=== PATIENT | male | born 1935 | race Caucasian/White ===

== ENCOUNTER 2024-07-16 22:24 | Inpatient (IN) | payer MEDICARE, OTHER, SELFPAY ==
[2024-07-16] VITALS (8 sets, daily range): BP systolic 90–116; BP diastolic 43–51; BMI 37.3
[2024-07-16 17:41] LABS: ALT (SGPT) 47 U/L (0-50); AST (SGOT) 51 U/L (17-59); Albumin 3.1 g/dl (3.5-5.0); Alkaline Phosphatase 192 U/L (38-126); Blood Urea Nitrogen 80 mg/dl (9-20); Calcium 8.3 mg/dl (8.4-10.2); Carbon Dioxide 23 mmol/L (22-30); Chloride 90 mmol/L (98-107); Glucose 256 mg/dl (70-99); Potassium 3.9 mmol/L (3.5-5.1); Sodium 126 mmol/L (135-145); Total Bilirubin 1.3 mg/dl (0.2-1.3); Total Protein 5.8 g/dl (6.3-8.2); eGFR 20.17
[2024-07-16 17:42] LABS: Lipase 54 U/L (23-300)
[2024-07-16 17:46] LABS: Troponin I 0.023 ng/ml
[2024-07-16 18:04] LABS: Hematocrit 34.6 % (39.0-52.0); Hemoglobin 12.3 g/dL (13.0-18.0); Mean Corp Hgb Conc. 35.5 g/dL (33.0-37.0); Mean Corpuscular Hgb 30.8 pg (27.0-31.0); Mean Corpuscular Volume 86.5 fL (80.0-94.0); Mean Platelet Volume 9.9 fL (7.4-10.4); Platelet Count 216 10^3/uL (130-400); Red Cell Dist. Width 12.2 % (11.5-14.5); White Blood Cell Count 19.9 10^3/uL (4.8-10.8)
--- NOTE | 2024-07-16 18:18 | ED.GENMED ---
History of Present Illness
<Chacha Stinson NP - Last Filed: 07/16/24 23:44>
General
Chief Complaint: Fever
Source: patient, spouse and family (Daughter)
Exam Limitations: none
Time Seen by Provider: 07/16/24 17:48
Nursing documentation reviewed up to this point in time: agreed with
History of Present Illness
History of Present Illness:
Patient to ED from PCP office for report of fever, weakness, abdominal pain, anorexia. Symptoms started approx 4-5 days ago. He reports a history of GERD and states his medications stopped working in May. He was switched to pantoprozole but
states he developed diarrhea after a few weeks. He stopped med on July 02 but states he hasnt felt right since. No further diarrhea. Family states he has not been eating or drinking this week. He typically walks with a cane but is now unable to
ambulate without a walker and assistance from family. Reports generalilzed abd. discomfort and bloating. Decreased urine output
Past History
<Chacha Stinson NP - Last Filed: 07/16/24 23:44>
Past History
ED Past Medical History: HTN
Social History
Tobacco: Non-smoker
Living: with family
Review of Systems
<Chacha Stinson NP - Last Filed: 07/16/24 23:44>
Review of Systems
Allergies reviewed?: Yes
All Other Systems: ROS reviewed and negative except as documented in HPI and ROS
Constitutional: Reports fever and fatigue
EENT: Reports no symptoms
Respiratory: Reports no symptoms
Cardiac: Reports no symptoms
ABD/GI: Reports abdominal pain (diffuse), anorexia and other (abdominal distention)
: Reports other (decreased urine output)
Musculoskeletal: Reports no symptoms
Skin: Reports no symptoms
Neurological: Reports weakness
Psychiatric: Reports no symptoms
Phy Exam
<Chacha Stinson NP - Last Filed: 07/16/24 23:44>
General Physical Exam
General Presentation: mild distress
General age: appears stated age
General Skin: warm and dry
General Habitus: normal
General Mental: alert
Cardiovascular Exam
Cardiovascular Exam: regular rate/rhythm
Pulmonary Exam
Pulmonary Exam: lungs clear and no respiratory distress
Gastrointestinal Exam
Gastrointestinal Exam: normal bowel sounds, no pulsatile mass, distended and guarding
Palpation: generalized: Moderate tenderness
Musculoskeletal Exam
Musculoskeletal Exam: full ROM and neuro vasc intact
Skin Exam
Skin Exam: normal color, warm/dry and no rash
Psychiatric Exam
Psychiatric Exam: normal mood/affect
Course
<Chacha Stinson, TRAVEL RN OR - Last Filed: 07/16/24 23:44>
Orders/Labs/Results
Orders:
Orders
07/16/24 16:48
EKG [Electrocardiogram (*1)] Urgent
Reason for Study: Abdominal Pain
EKG- Treatment ONCE
07/16/24 17:09
Complete Blood Count/With Diff Urgent
Comprehensive Metabolic Panel Urgent
Lipase Urgent
Serum Osmolality Urgent
Comment: ADD ON
Troponin I Urgent
07/16/24 18:13
Urinalysis Reflex To Culture Urgent
0.9% Sodium Chloride 1000 ml [Nss] 1,000 ml IV BOLUS
07/16/24 18:14
CT Abd/pel Without Iv Or Oral Urgent
Comment:
Reason For Exam: abdominal pain, distention, ARF
07/16/24 18:15
Add On- LAB Urgent
Tests Added?: lipase
07/16/24 18:55
Lactic Acid Urgent
Blood Culture Urgent
LAUREL Source: Blood/Venous
Specimen Description:
07/16/24 20:09
US Abdomen Complete/Upper Urgent
Comment:
Reason For Exam: possible cholecystitis on CT
07/16/24 21:32
CefTRIAXone [Rocephin] 1,000 mg IV NOW STA
07/16/24 21:52
0.9% Sodium Chloride 1000 ml [Nss] 1,000 ml IV BOLUS
07/16/24 21:56
Admit/Transfer Patient As Directed
Co-Sign Provider:
Level of Care: Inpatient admission
Assign to:: Telemetry
Physician / Group: Htay
Diagnosis: Sepsis
Reason for Telemetry: Arrhythmia
Date to Stop Telemetry: 07/19/24
Time to Stop Telemetry: 11:00
Reason for Hospitalization: IVFs, IV abx
Expected length of stay greater than two midnights?: Yes
ELOS- Estimated Length of Stay in days: 3
I certify the patient meets the requirements for IP care: Yes
07/16/24 21:57
PRN Pain Medication Management As Directed
May give lesser potent ordered pain med per pt: Yes
preference::
Protocol:: Medication orders for pain may be administered in a
manner that supports deferring to patient preference
when the pt is:
- Requesting an ordered lesser potent pain medication.
Least to most potent pain medications are defined
as: acetaminophen < NSAID < tramadol < opioids
(morphine, oxycodone, hydromorphone).
- Requesting a lesser dose of the same medication IF
ORDERED.
- Requesting a less intrusive route of administration
if both routes are prescribed by the provider (PO <
IV).
07/16/24 21:58
Add On- LAB Routine
Tests Added?: serum osmo
Urine Osmolality Random [Osmolality, Random Urine] Urgent
Urine Sodium Urgent
07/16/24 21:59
Code Status As Directed
Resuscitation Status: Full Code
07/16/24 22:10
Blood Culture Urgent
LAUREL Source: Blood/Venous
Specimen Description:
07/19/24 11:00
DC Protocol for Telemetry ONCE
Abnormal Lab Results
07/16/24
17:09
WBC 19.9 H 10^3/uL
(4.8-10.8)
RBC 4.00 L 10^6/uL
(4.70-6.10)
Hgb 12.3 L g/dL
(13.0-18.0)
Hct 34.6 L %
(39.0-52.0)
Abs Immat Gran (auto) 0.2 H 10^3/uL
(0-0.05)
Absolute Neuts (auto) 18.5 H 10^3/uL
(1.4-6.5)
Absolute Lymphs (auto) 0.4 L 10^3/uL
(1.2-3.4)
Absolute Monos (auto) 0.8 H 10^3/uL
(0.1-0.6)
Immature Gran % 0.9 H %
(0-0.5)
Neutrophils % 92.8 H %
(42.2-75.2)
Lymphocytes % 2.0 L %
(20.5-51.1)
Sodium 126 L mmol/L
(135-145)
Chloride 90 L mmol/L
(98-107)
BUN 80 H mg/dl
(9-20)
Creatinine 2.9 H mg/dL
(0.7-1.3)
Glucose 256 H mg/dl
(70-99)
Calcium 8.3 L mg/dl
(8.4-10.2)
Alkaline Phosphatase 192 H U/L
(38-126)
Total Protein 5.8 L g/dl
(6.3-8.2)
Albumin 3.1 L g/dl
(3.5-5.0)
07/16/24 17:09
07/16/24 17:09
Vital Signs
Initial and Last Documented VS:
Initial Vital Signs
Temp Pulse Resp BP Pulse Ox
98.9 F 107 18 95/51 95
07/16/24 16:41 07/16/24 16:41 07/16/24 16:41 07/16/24 16:41 07/16/24 16:41
Last Documented Vital Signs
Temp Pulse Resp BP Pulse Ox
98.9 F 80 20 95/43 96
07/16/24 16:41 07/16/24 23:15 07/16/24 23:15 07/16/24 23:00 07/16/24 23:15
<Adelso Morales, DO - Last Filed: 07/16/24 18:50>
Orders/Labs/Results
Orders:
Orders
07/16/24 16:48
EKG [Electrocardiogram (*1)] Urgent
Reason for Study: Abdominal Pain
EKG- Treatment ONCE
07/16/24 17:09
Complete Blood Count/With Diff Urgent
Comprehensive Metabolic Panel Urgent
Lipase Urgent
Serum Osmolality Urgent
Comment: ADD ON
Troponin I Urgent
07/16/24 18:13
Urinalysis Reflex To Culture Urgent
0.9% Sodium Chloride 1000 ml [Nss] 1,000 ml IV BOLUS
07/16/24 18:14
CT Abd/pel Without Iv Or Oral Urgent
Comment:
Reason For Exam: abdominal pain, distention, ARF
07/16/24 18:15
Add On- LAB Urgent
Tests Added?: lipase
07/16/24 18:55
Lactic Acid Urgent
Blood Culture Urgent
LAUREL Source: Blood/Venous
Specimen Description:
07/16/24 20:09
US Abdomen Complete/Upper Urgent
Comment:
Reason For Exam: possible cholecystitis on CT
07/16/24 21:32
CefTRIAXone [Rocephin] 1,000 mg IV NOW STA
07/16/24 21:52
0.9% Sodium Chloride 1000 ml [Nss] 1,000 ml IV BOLUS
07/16/24 21:56
Admit/Transfer Patient As Directed
Co-Sign Provider:
Level of Care: Inpatient admission
Assign to:: Telemetry
Physician / Group: Htay
Diagnosis: Sepsis
Reason for Telemetry: Arrhythmia
Date to Stop Telemetry: 07/19/24
Time to Stop Telemetry: 11:00
Reason for Hospitalization: IVFs, IV abx
Expected length of stay greater than two midnights?: Yes
ELOS- Estimated Length of Stay in days: 3
I certify the patient meets the requirements for IP care: Yes
07/16/24 21:57
PRN Pain Medication Management As Directed
May give lesser potent ordered pain med per pt: Yes
preference::
Protocol:: Medication orders for pain may be administered in a
manner that supports deferring to patient preference
when the pt is:
- Requesting an ordered lesser potent pain medication.
Least to most potent pain medications are defined
as: acetaminophen < NSAID < tramadol < opioids
(morphine, oxycodone, hydromorphone).
- Requesting a lesser dose of the same medication IF
ORDERED.
- Requesting a less intrusive route of administration
if both routes are prescribed by the provider (PO <
IV).
07/16/24 21:58
Add On- LAB Routine
Tests Added?: serum osmo
Urine Osmolality Random [Osmolality, Random Urine] Urgent
Urine Sodium Urgent
07/16/24 21:59
Code Status As Directed
Resuscitation Status: Full Code
07/16/24 22:10
Blood Culture Urgent
LAUREL Source: Blood/Venous
Specimen Description:
07/19/24 11:00
DC Protocol for Telemetry ONCE
Abnormal Lab Results
07/16/24
17:09
WBC 19.9 H 10^3/uL
(4.8-10.8)
RBC 4.00 L 10^6/uL
(4.70-6.10)
Hgb 12.3 L g/dL
(13.0-18.0)
Hct 34.6 L %
(39.0-52.0)
Abs Immat Gran (auto) 0.2 H 10^3/uL
(0-0.05)
Absolute Neuts (auto) 18.5 H 10^3/uL
(1.4-6.5)
Absolute Lymphs (auto) 0.4 L 10^3/uL
(1.2-3.4)
Absolute Monos (auto) 0.8 H 10^3/uL
(0.1-0.6)
Immature Gran % 0.9 H %
(0-0.5)
Neutrophils % 92.8 H %
(42.2-75.2)
Lymphocytes % 2.0 L %
(20.5-51.1)
Sodium 126 L mmol/L
(135-145)
Chloride 90 L mmol/L
(98-107)
BUN 80 H mg/dl
(9-20)
Creatinine 2.9 H mg/dL
(0.7-1.3)
Glucose 256 H mg/dl
(70-99)
Calcium 8.3 L mg/dl
(8.4-10.2)
Alkaline Phosphatase 192 H U/L
(38-126)
Total Protein 5.8 L g/dl
(6.3-8.2)
Albumin 3.1 L g/dl
(3.5-5.0)
07/16/24 17:09
07/16/24 17:09
Vital Signs
Initial and Last Documented VS:
Initial Vital Signs
Temp Pulse Resp BP Pulse Ox
98.9 F 107 18 95/51 95
07/16/24 16:41 07/16/24 16:41 07/16/24 16:41 07/16/24 16:41 07/16/24 16:41
Last Documented Vital Signs
Temp Pulse Resp BP Pulse Ox
98.9 F 80 20 95/43 96
07/16/24 16:41 07/16/24 23:15 07/16/24 23:15 07/16/24 23:00 07/16/24 23:15
<Chacha Stinson NP - Last Filed: 07/16/24 23:44>
*Radiology
Radiology exam reviewed: radiology read reviewed
*Pulse Oximetry
Patient hypoxic: no
*Critical Care Note
Total Time (30-74mins, 75-104mins- exclusive of procedures): Not Applicable
<Chacha Stinson NP - Last Filed: 07/16/24 23:44>
Update Note
Update Note:
Patient to ED wtih complaint of fever, weakness, abdominal distention and diffuse discomfort, poor urine output. Labs reviewed. WBC 19 with normal lactic. Na 126, Creat 2.9. Abdominal CT: No renal concerns. Prominent gallbladder with stranding
noted. US completed, results: Again without renal concerns. Gallbladder sludge and a tiny stone with wall thickening. No biliary dilatation. Radiology suggestion of Hida scan. Will cover with dose of IV rocephin. Tbili normal 1.3, AST 51, ALT 47.
Alk phos 192. Non fasting glucose of 256 noted. No history of diabetes. He has remained afebrile in ED. WIll admit to hospitalist service for ARF, hyponatremia
ED Attending Note
<Chahca Stinson NP - Last Filed: 07/16/24 23:44>
-
Portions of this chart may have been created with voice recognition software.� Occasional wrong word or��sound alike� substitutions may have occurred due to the inherent limitations of voice recognition software.
<Adelso Morales DO - Last Filed: 07/16/24 18:50>
ED Attending Note
Patient seen and examined by attending physician: Yes
I performed the substantive portion of visit, reviewed & personally made and approve the management plan that is documented in note by myself or CATALINA.: Yes
ED Attending Note:
I have seen and evaluated the patient with a [id number] encounter. I have spoken to the advance practicer provider and involved in the medical history, the physical exam, medical decision making.
Evaluation and management service: agree unless noted differently below.
Results interpretation: agree unless noted differently below.
Focused HPI: 89-year-old male presenting for evaluation of generalized fatigue and abdominal pain. Patient does admit to recent diarrhea that has resolved. He now complains of decreased p.o. intake and decreased urinary output
Physical exam: Weak and fatigued. Mildly distended and mildly tender abdomen.
Medical Decision Making: Blood work concerning for JESSICA and new onset diabetes. Will give IV fluids and obtain CT A/P. Given his lab abnormality, patient will ultimately be admitted
Discharge Plan
Departure
Patient Disposition: Admit
Date of Disposition: 07/16/24
Time of Disposition: 21:26
Presentation/result/management discussed w/ accepting MD/DO: Hospitalist
Condition: Fair
Covid-19: Not Applicable
Discharge Problem:
Acute renal failure (ARF), Acute hyponatremia
Interventions
Interventions:
*Risk Screen - Suicide Last Done: 07/16/24 16:41
*General Assessment Last Done: 07/16/24 16:41
*Neglect/Abuse Screening Last Done: 07/16/24 23:15
*ED- Fall Risk Assessment Last Done: 07/16/24 23:15
*ED COVID-19 Vaccine History Last Done: 07/16/24 16:41
ED- Neurological Assessment Last Done: 07/16/24 19:01
ED-Skin Assessment Last Done: 07/16/24 19:00
[2024-07-16 18:24] LABS: % Basophils 0.4 % (0-2); % Immature Granulocytes 0.9 % (0-0.5); % Monocytes 3.9 % (1.7-9.3); % Neutrophils 92.8 % (42.2-75.2); Absolute Basophils 0.1 10^3/uL (0-0.2); Absolute Immature Granulocytes 0.2 10^3/uL (0-0.05); Absolute Lymphocytes 0.4 10^3/uL (1.2-3.4); Absolute Monocytes 0.8 10^3/uL (0.1-0.6); Absolute Neutrophils 18.5 10^3/uL (1.4-6.5); Nucleated Red Blood Cells % 0 % (-)
[2024-07-16] MEDS: NSS 1000 IV ×2 (18:56→22:26)
[2024-07-16 19:16] LABS: Lactic Acid 1.3 mmol/L (0.7-2.0)
--- NOTE | 2024-07-16 21:44 | W.PN.UPDATE ---
Update Note
Progress Note Update
This note serves as an addendum to the H&P by intern retail CATALINA Carina CORTÉS
HPI
89F HX HTN, HX GERD sent PCP office to ER:
- report of fever, weakness, abdominal pain, anorexia.
- Symptoms started approx 4-5 days ago
- HX GERD , medications stopped working in May then was switched to pantoprozole but states he developed diarrhea after a few weeks.
- He stopped pantoprazole on July 02 then no further diarrhea but poor PO intake of fluid and solid per family
- typically walks with a cane but is now unable to ambulate without a walker and assistance from family.
- Reports generalized abd. discomfort and bloating.
- Decreased urine output
PHX; as above
Reviewed VS:
Vital Signs
Temp Pulse Resp BP Pulse Ox
98.9 F 107 18 116/51 95
07/16/24 16:41 07/16/24 16:41 07/16/24 16:41 07/16/24 19:00 07/16/24 19:01
PE
Gen: mild distress
HEENT: symmetric face, nl speech, nl language
Neck: supple, no JVD
Lungs: symmetiric AE, no wheze
Cor: RRR S S2
Abdomen: soft but distended, generalized tenderness
AUDIO VIDEO REPAIRER: AAO3
MS: no edema
Psych: nl mood and affect
Laboratory Tests
1807/16/24 07/16/24
14:26 17:09 18:55
WBC 19.9 H
Hgb 12.3 L
Plt Count 216
Sodium 126 L
Potassium 3.9
Chloride 90 L
Carbon Dioxide 23
Creatinine 1.2 2.9 H
BUN 80 H
Glucose 167 H 256 H
eGFR 20.17
Lactic Acid 1.3
Calcium 8.3 L
Total Bilirubin 1.3
AST 51
ALT 47
Alkaline Phosphatase 192 H
Albumin 3.1 L
BCx sent
US Abdomen Complete/Upper
- Evaluation overall limited as a result of body habitus and overlying bowel gas. Please see above comments.
- Gallbladder containing sludge and likely tiny stones with wall thickening.
- Negative sonographic Nunn's sign.
- No findings to suggest biliary tract dilatation.
- If there is a clinical concern for acute cholecystitis, suggest Nuclear Hepatobiliary Scan.
- No findings to suggest renal collecting system dilatation bilaterally.
CT Abd/pel Without Iv Or Oral
- Findings compatible with prominent gallbladder/pericholecystic stranding and possible wall thickening.
- Cannot exclude at least one tiny gallbladder stone.
- Findings could represent acute cholecystitis. Abdominal ultrasound could be obtained for more complete evaluation.
- No findings to suggest obstructive uropathy bilaterally. Moderate bilateral perinephric stranding, indeterminate.
ASSESSMENT & PLAN
Generalized abdominal pain and tenderness
Recent diarrhea suspect due to PO PPI; spontaneous resolved
Unremarkable TB, Transaminase and AKP
CT suggest acute cholecystitis
US suggest Gallbladder containing sludge and likely tiny stones with wall thickening. No findings to suggest biliary tract dilatation.
DDX; Enteritis ( viral, PPI, CDAD) vs acute cholecystitis
- NPO and IVF
- Empiric IV Unasyn
- BCx sent
- C Diff if recurrence of diarrhea
- To consider HIDA
- Trend LFTs in AM
- GS consult
Pre renal origin JESSICA due to recent Dianeal loss plus poor POs plus HCTZ
- Hypovolemic hyponatremia
- Hold HCTZ
- Hold Losartan
- s/p 1 L NS at ER
- cont IV NS 120 / H for 1 more Litre overnight
- Trend BMP
Hypotensive due to hypovolemia form acute GI illness , poor POs and HCTZ
Benign HTN
- Hypovolemic hyponatremia
- Hold HCTZ
- Observe BP
DVT Px: SQH
Full code
IP TLM
[2024-07-16] MEDS: ROCEPHIN 1000 MG IV (21:53)
--- NOTE | 2024-07-16 22:04 | HPS.HSE ---
Family Physician
-
Family Physician: Maribel Jacinto
Chief Complaint
-
Fever, Weakness, Anorexia and Abdominal Pain
History of Present Illness
Patient is a 89 y/o male past medical history of hypertension, and hyperlipidemia who presents with fever, weakness, anorexia and abdominal pain. Patient reports he started to feel unwell about a week ago. He reports very poor oral intake and no
appetite. He notes generalized abdominal discomfort and bloating. He reports he usually ambulates with cane, but today was unable to ambulate without use of walker and assistance from family. He saw his PCP today who noted him to have a fever of
101.5F in the office today and sent him to the emergency department for evaluation. Patient endorses feeling feverish last night.
Medical History
Past Medical History
Past Medical History: Reports Other
Additional Past Medical History:
Essential Hypertension
Hyperlipidemia
Spinal Stenosis
Past Surgical History: Reports Other
Additional Past Surgical History:
Hernia Repair
Social History
Tobacco: Former Smoker (Quit in his 30s)
Alcohol: Occasional
Family History
Family History: Not pertinent
Allergies / Home Medications
Allergies reflects when Allergies were last updated in [facility].
Home Medications with original date entered in [facility]
Allergy/Medication List:
Allergies
Allergy/AdvReac Type Severity Reaction Status Date / Time
No Known Allergies Allergy Verified 07/16/24 16:47
Home Medications
aspirin 81 mg chewable tablet 81 mg PO HS 10/02/10
hydrochlorothiazide 25 mg tablet 25 mg PO DAILY 10/02/10
losartan 100 mg tablet 100 mg PO DAILY 10/02/10
amlodipine 5 mg tablet 5 mg PO DAILY 07/16/24
docusate sodium 100 mg capsule (Stool Softener) 100 mg PO HS 07/16/24
Review of Systems
-
A 12 point ROS was completed and negative except as noted: Yes
Constitutional: Reports Fever and Chills
Respiratory: Denies Cough or Trouble Breathing
Cardiac: Denies Chest Pain
Abdomen/GI: Reports See HPI
: Denies Dysuria or Bleeding
Physical Exam
Vital Signs
Vital Signs
Temp Pulse Resp BP Pulse Ox
98.9 F 107 18 116/51 95
07/16/24 16:41 07/16/24 16:41 07/16/24 16:41 07/16/24 19:00 07/16/24 19:01
Physical Exam
General: Comfortable and Conversant
HEENT: Anicteric and Moist mucous membranes
Respiratory: Clear and Non Labored Respirations
Cardiac: S1/S2, Regular Rhythm and Tachycardia
GI: Soft, Tender (Significant RUQ tenderness to palpation slight voluntary guarding) and Distended (Slightly)
Rectal: Brown
Musculoskeletal: No Clubbing, No Cyanosis and No Edema
Skin: Warm and Dry
Neuro: Awake, Alert, Oriented and Nonfocal/grossly intact
Psych: Calm
Laboratory Results
-
07/16/24 17:09
07/16/24 17:09
Laboratory Results
Lactic Acid 1.3 mmol/L (0.7-2.0) 07/16/24 18:55
Total Bilirubin 1.3 mg/dl (0.2-1.3) 07/16/24 17:09
AST 51 U/L (17-59) 07/16/24 17:09
ALT 47 U/L (0-50) 07/16/24 17:09
Alkaline Phosphatase 192 U/L (38-126) H 07/16/24 17:09
Troponin I 0.023 ng/ml 07/16/24 17:09
Lipase 54 U/L (23-300) 07/16/24 17:09
Abd/Pelvis CT Scan:
Findings compatible with prominent gallbladder/pericholecystic stranding and possible wall thickening. Cannot exclude at least one tiny gallbladder stone. Findings could represent acute cholecystitis. Abdominal ultrasound could be obtained for more
complete evaluation.
No findings to suggest obstructive uropathy bilaterally. Moderate bilateral perinephric stranding, indeterminate.
Abdomen US:
Gallbladder containing sludge and likely tiny stones with wall thickening. Negative sonographic Nunn's sign. No findings to suggest biliary tract dilatation. If there is a clinical concern for acute cholecystitis, suggest Nuclear Hepatobiliary
Scan.
Data Reviewed
-
CT Scan: Report Reviewed by me
Lab Data: Labs Reviewed by me
Impression/Plan
-
Severe Sepsis suspect secondary to acute cholecystitis
-Consult Surgery
-Continue Unasyn
-Continue IVFs
-Await blood cultures
Acute Kidney Injury and Hypovolemic Hyponatremia
-Hold HCTZ and Losartan
-Continue IVFs
-Recheck creatinine in AM
Hyperglycemia, no prior history of diabetes
-Check HgbA1c
-Monitor sugars and continue coverage insulin
Essential Hypertension
-Hold meds due to JESSICA and Hypotension
DVT proph: SC Heparin
Code Status: Full Code
[2024-07-16 22:27] LABS: Osmolality Serum 289 mOsm/kg (275-300)
[2024-07-17] VITALS (16 sets, daily range): BP systolic 0–137; BP diastolic 46–71; BMI 38.5
[2024-07-17] MEDS: HEPARIN 5000 UNITS SC ×4 (01:02→23:12)
[2024-07-17] MEDS: NSS 1000 IV ×2 (01:03→11:56)
[2024-07-17 01:10] LABS: Glucose - Point of Care 224 mg/dl (70-99)
[2024-07-17] MEDS: UNASYN IV (02:27)
[2024-07-17 07:36] LABS: Hematocrit 30.6 % (39.0-52.0); Hemoglobin 10.8 g/dL (13.0-18.0); Mean Corp Hgb Conc. 35.3 g/dL (33.0-37.0); Mean Corpuscular Hgb 30.8 pg (27.0-31.0); Mean Corpuscular Volume 87.2 fL (80.0-94.0); Mean Platelet Volume 10.5 fL (7.4-10.4); Platelet Count 195 10^3/uL (130-400); Red Blood Cell Count 3.51 10^6/uL (4.70-6.10); Red Cell Dist. Width 12.1 % (11.5-14.5); White Blood Cell Count 20.1 10^3/uL (4.8-10.8)
[2024-07-17 07:38] LABS: Osmolality Urine 492 mOsm/kg (300-900)
[2024-07-17 07:46] LABS: Urine Sodium 15 mmol/L (30-90)
[2024-07-17 08:18] LABS: ALT (SGPT) 37 U/L (0-50); AST (SGOT) 36 U/L (17-59); Albumin 2.4 g/dl (3.5-5.0); Alkaline Phosphatase 167 U/L (38-126); Blood Urea Nitrogen 82 mg/dl (9-20); Calcium 7.9 mg/dl (8.4-10.2); Carbon Dioxide 23 mmol/L (22-30); Chloride 96 mmol/L (98-107); Estimated Creatinine Clearance 21 ml/min; Glucose 161 mg/dl (70-99); Potassium 3.3 mmol/L (3.5-5.1); Sodium 129 mmol/L (135-145); Total Bilirubin 0.9 mg/dl (0.2-1.3); Total Protein 4.7 g/dl (6.3-8.2); eGFR 24.11
[2024-07-17 08:42] LABS: Glycohemoglobin (HgbA1c) 7.8 % (4.0-5.6)
[2024-07-17 08:54] LABS: Glucose - Point of Care 175 mg/dl (70-99)
--- NOTE | 2024-07-17 08:56 | W.SUR.PREOP ---
Pre-Operative Surgical Note
-
I have examined this patient prior to the performance of the scheduled procedure.
The patient's condition is unchanged from the time of the current History and
Physical and the patient is able to undergo the scheduled procedure.
--- NOTE | 2024-07-17 09:10 | CON.GS ---
Consultation
-
Date/Time Consultation Requested: 07/17/24 0028
Requesting Provider: Torsten
Reason for Consultation: Possible cholecystitis
Medical History
-
Chief Complaint: abdominal pain
History of Present Illness:
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 He has had worsening dyspepsia since May and changed antacid
medications without much benefit. He also noted some occasional diarrhea. His family reported in the ED, that he has not been eating or drinking much over the past week and progressively becoming weaker. He has been afebrile with stable vital signs.
On exam, there is tenderness to the epigastrium with some distention present.
Past Medical History
Past Medical History: GERD, HTN, Hypercholesterolemia, NIDDM, Renal Failure (ckd) and Other (spinal stenosis, morbid obesity)
Past Surgical History: Hernia Repair (inguinal) and Other (cataract, colonoscopy 2012 (diverticulosis, polyp))
Social History
Tobacco: Former Smoker
Alcohol: Occasional
Family History
Family History: Reviewed & Not Pertinent
Allergies / Home Medications
Allergy/AdvReac Type Severity Reaction Status Date / Time
No Known Allergies Allergy Verified 07/16/24 16:47
�Medication �Instructions �Recorded �Confirmed �Type
aspirin 81 mg chewable tablet 81 mg PO HS Blood Pressure 10/02/10 07/16/24 History
hydrochlorothiazide 25 mg tablet 25 mg PO DAILY Blood Pressure 10/02/10 07/16/24 History
losartan 100 mg tablet 100 mg PO DAILY Blood Pressure 10/02/10 07/16/24 History
amlodipine 5 mg tablet 5 mg PO DAILY Blood Pressure 07/16/24 07/16/24 History
docusate sodium 100 mg capsule 100 mg PO HS Constipation 07/16/24 07/16/24 History
(Stool Softener)
Review of Systems
-
History Source: Patient
All other systems: Negative unless noted
A 10 point review of systems was completed, and was negative except as per HPI.
Physical Exam
Vital Signs
Temp Pulse Resp BP Pulse Ox
98.7 F 98 18 117/57 94
07/17/24 03:13 07/17/24 03:13 07/17/24 03:13 07/17/24 03:13 07/17/24 03:13
07/16/24 07/17/24 07/18/24
06:59 06:59 06:59
Actual Weight 98.543 kg
Body Mass Index (BMI) 38.5
Lab Results
07/17/24 06:40
07/17/24 06:40
WBC 20.1 10^3/uL (4.8-10.8) H 07/17/24 06:40
Hgb 10.8 g/dL (13.0-18.0) L 07/17/24 06:40
Hct 30.6 % (39.0-52.0) L 07/17/24 06:40
Plt Count 195 10^3/uL (130-400) 07/17/24 06:40
Abs Immat Gran (auto) 0.2 10^3/uL (0-0.05) H 07/16/24 17:09
Neutrophils % 92.8 % (42.2-75.2) H 07/16/24 17:09
Physical Exam
General: Well Developed and Well Nourished
HEENT: Moist Mucous Membranes
Respiratory: Non Labored Respirations
GI: Soft and Tender (epigastrium )
Skin: Warm and Dry
Neuro: Awake and Alert
Psych: Calm
Data Reviewed
-
CT Scan: Image Personally Visualized and interpreted, Report Reviewed by me, Discussed with Physician and Discussed with Patient
Ultrasound: Image Personally Visualized and interpreted, Report Reviewed by me, Discussed with Physician and Discussed with Patient
Labs: Labs Reviewed by me, Discussed with Physician and Discussed with Patient
Old Records: Reviewed
Assessment / Plan
-
89 yo male with progressive symptoms of indigestion for the past month or so presenting with anorexia x1 week and generalized abdominal pain. CT imaging reviewed with pericholecystic stranding and some gallbladder wall thickening consistent with
acute cholecystitis. US limited d/t body habitus but does demonstrate cholelithiasis. AFVSS. Significant leukocytosis which is trending upward. Cr elevated secondary to JESSICA from dehydration. Bilirubin normal, mild elevation in alk phos. Bacteremia
present with blood cx + with preliminary findings of GNB.
--Continue IV ABX
--NPO for OR later today for laparoscopic cholecystectomy
--Analgesics/Antiemetics prn
--C/w IVF
--Medical management as per primary team
[2024-07-17] MEDS: NOVOLOG FLEXPEN-LOW RESISTANCE 1 UNITS SC ×2 (10:04→16:57)
--- NOTE | 2024-07-17 12:31 | W.PN.HOSP.TC ---
Addendum entered and electronically signed by Elvis Glynn MD 07/17/24 15:03:
NAD
Scleral Anicteric
MMM
No JVD
CTABL
RRR, S1/S2
Soft, tenderness right upper quadrant/epigastric, ND, BS+
Warm, Dry
Pitting edema 1+ bilateral lower extremity
AAOx3
Calm
Gram-negative michael bacteremia
-Likely intra-abdominal translocation
-Stop Zosyn narrowed to Rocephin
-Await culture speciation/sensitivities
Acute cholecystitis
-Surgery plans to take to the OR for a lap luis
-IV fluids
-Analgesics
-N.p.o.
JESSICA
-Obtain renal bladder ultrasound
-Monitor urinary output
-IV fluids
-Already improving on fluids
Electrolyte abnormalities with hyponatremia hypokalemia hypochloremia
-Replete electrolytes as needed
Diabetes
-A1c 7.8
-On discharge depending on renal function potentially can be discharged on metformin
-Now Accu-Chek sliding scale goal blood glucose 1 40-1 80 carb controlled diet when able to tolerate low insulin sliding scale
Hypertension
-Hold
Original Note:
Today's Communication/Plan
-
-Switched Unasyn to Zosyn
-Continue IV fluids
-Follow-up blood culture, CBC, BMP
Assessment / Plan
Assessment / Plan
Impression:
is an 89 years old male with a past medical history of hypertension, hypercholesterolemia, chronic kidney disease and spinal stenosis who presented to ER with fever, generalized muscle weakness, and abdominal pain. He reported having 1
episode of diarrhea about 2 weeks ago when he was in [place]. He noted his pain started about 2 weeks ago and get worse and gradually and decided to come to the hospital. At ER admission he was obtained an abdominal CT which showed a possible
acute cholecystitis. He was seen by the general surgery team this morning and planned to have cholecystectomy.
PLAN
#Sepsis highly possibly secondary to acute cholecystitis
-Surgery on board-planning cholecystectomy today
-Unasyn switched to Zosyn
-Continue IVFs
-Blood culture: E. coli--likely from GI tract
-Follow second blood culture and sensitivity
#Acute Kidney Injury
-Creatinine was noted to 2.9 at admission
-Slightly improved to 2.5 on 07/17/2024
-Continue IV fluids
-Follow-up BMP
#Hypovolemic Hyponatremia
-Improving
-Hold HCTZ and Losartan
-Follow-up BMP
# Diabetes mellitus, no prior history of diabetes
-HgbA1c: 7.8
-Low ISS
Essential Hypertension
-Hold meds due to JESSICA and Hypotension
DVT proph: SC Heparin
Code Status: Full Code
Anticipated Discharge: 24 - 48 hours
Subjective/Interval History
-
Date of Service: July 17, 2024
Patient reports feeling weak and complains having abdominal pain. Denies chest pain and shortness of breath.
Objective Data
-
Labs:
Laboratory Results
07/17/24
06:40
WBC 20.1 H
Hgb 10.8 L
Hct 30.6 L
Plt Count 195
Sodium 129 L
Potassium 3.3 L
Chloride 96 L
Carbon Dioxide 23
BUN 82 H
Creatinine 2.5 H
Glucose 161 H
Calcium 7.9 L
Total Bilirubin 0.9
AST 36
ALT 37
Alkaline Phosphatase 167 H
Vital Signs:
Vital Signs
Temp Pulse Resp BP Pulse Ox
98.5 F 91 20 109/52 98
07/17/24 07:00 07/17/24 07:00 07/17/24 07:00 07/17/24 07:00 07/17/24 07:00
Review of Systems
-
History Source: Patient
Constitutional: Reports No Symptoms
EENT: Reports No Symptoms Reported
Respiratory: Reports No Symptoms
Cardiac: Reports No Symptoms
Abdomen/GI: Reports Abdominal Pain and Nausea
Genitourinary: Reports No Symptoms
Musculoskeletal: Reports Other (Generalized muscle weakness)
Skin: Reports No Symptoms
Neuro: Reports No Symptoms
Physical Exam
-
General: Well Developed, Well Nourished, Appears Chronically Ill and Obese
HEENT: Normocephalic and Atraumatic
Respiratory: Clear to Auscultation
Cardiac: Regular Rhythm and S1/S2
GI: Soft, Tender (Mild tenderness on mid abdominal area and RUQ -no rebound or guarding) and Distended
Musculoskeletal: No Clubbing, No Cyanosis, Edema, Right Lower Extrem (1+ pitting edema) and Edema, Left Lower Extrem (1+ pitting edema)
Skin: Warm
Neuro: Awake, Alert, Oriented and AO x 3
Psych: Calm
--- NOTE | 2024-07-17 14:13 | W.IMMPOSTOP ---
Surgical Immed Post Op Note
-
Primary Surgeon: Lukas Armenta MD
Assisting Surgeon: None
Pre-op Diagnosis: Acute cholecystitis
Post-op Diagnosis: Gangrenous, perforated cholecystitis; right upper quadrant abscess
Procedure Performed:
1. Laparoscopic cholecystectomy with cholangiogram
2. Drainage of intra-abdominal abscess
Anesthesia Type: General
Specimen / Cultures:
1. Right upper quadrant abscess for culture
2. Gallbladder and contents
Estimated Blood Loss: 11 cc
Complications: None
Operative Findings: Veress entry, initial 5 mm Optiview entry to medial to give us a good view so an additional 5 mm right upper quadrant port was used to better triangulate the gallbladder. The gallbladder itself was gangrenous and perforated.
There was free pus in the right upper quadrant noted on entry. This was sent for culture. We performed a top-down cholecystectomy without violation of the capsule. The cystic artery was identified and clipped. The cystic duct was ligated first
proximally with a 0 PDS Endoloop and a cholangiogram was performed which showed no distal filling defects and brisk flow of contrast into the duodenum as well as normal biliary anatomy. A second Endoloop was then used to divide the duct distally,
the stump was reinforced with two 5 mm clips. A 19 Kyrgyz right upper quadrant drain was placed due to the gross purulent spillage/abscess.
POST OP PLAN:
Imaging: None
Labs: Routine AM
Diet: Clears today, can advance to a regular diet tomorrow, However an ileus would not be unexpected.
Analgesia: Tylenol 650mg q6 Otoniel, Dilaudid 0.5mg q2h PRN
Neuro/vascular checks: q4h
AC/AP: Hold Therapeutic AC, Ok for DVT PPx
Activity: Ad Esme
Wound/Incisions/Drains: Routine, MITCHELL to bulb suction.
Abx: Would continue antibiotics x 4 days
Dispo: RNF, anticipate hospital stay until Saturday at least. MITCHELL can be removed prior to discharge pending quantity and character of the output.
--- NOTE | 2024-07-17 14:23 | OR.RPT ---
Operative Report
Operative Report
Patient Name: Sameera Hendrickson
: 1935
Date of Operation: 07/17/2024
Preoperative Diagnosis: Acute cholecystitis
Postoperative Diagnosis: Gangrenous, perforated cholecystitis; right upper quadrant abscess
Procedure(s):
Laparoscopic Cholecystectomy with Cholangiogram
Drainage of an intra-abdominal abscess
Surgeon(s):
Dr. Armenta
Hospital Receptionist(s):
JENNIFER Goodman
Anesthesia: General
Estimated Blood Loss: 11 cc
Urine Output: None
Drains/Lines/Implants: 19 Zimbabwean round Martell drain
Specimens:
1. Gallbladder and contents
HPI/Surgical Indications:
This is an 89-year-old male who presents with 7 days of abdominal pain. Exam, labs and imaging are consistent with acute cholecystitis. Risks/Benefits/Alternatives were discussed at length, and the patient agreed to proceed with surgery.
Operative Findings: Veress entry, initial 5 mm Optiview entry to medial to give us a good view so an additional 5 mm right upper quadrant port was used to better triangulate the gallbladder. The gallbladder itself was gangrenous and perforated.
There was free pus in the right upper quadrant noted on entry. This was sent for culture. We performed a top-down cholecystectomy without violation of the capsule. The cystic artery was identified and clipped. The cystic duct was ligated first
proximally with a 0 PDS Endoloop and a cholangiogram was performed which showed no distal filling defects and brisk flow of contrast into the duodenum as well as normal biliary anatomy. A second Endoloop was then used to divide the duct distally,
the stump was reinforced with two 5 mm clips. A 19 [place]an right upper quadrant drain was placed due to the gross purulent spillage/abscess.
Procedure Description:
The patient was brought to the Operating Room and placed in the supine position with one arm tucked. Following uneventful induction of general endotracheal anesthesia, an orogastric tube was placed. The abdomen was prepped and draped in the usual
sterile fashion. A timeout was performed confirming the procedure, consent, and that IV antibiotics were infused and sequential compression devices were confirmed to be on. The abdomen was entered using a left subcostal Veress technique which
required a single pass followed by a 5 mm right upper quadrant Optiview trocar. Pneumoperitoneum to 15 mmHg pressure was obtained without difficulty and we confirmed that no injury had occurred during our entry. The patient was positioned in
reverse Trendelenberg and rotated with the right side up slightly. Two 5 mm trocars were then placed along the right subcostal margin, followed by a 12 mm port in the epigastrium. Our initial 5 mm port appeared to be to superior medial to be
functional so an additional 5 mm port was placed in the right upper quadrant to better triangulate towards the gallbladder. There was pus noted immediately in the right upper quadrant concerning for perforated cholecystitis. After peeling back
some the pericolonc fat the anterior surface of the gallbladder was exposed and noted to be necrotic at multiple points. Palpation of the gallbladder because pus to ooze from the posterior aspect, nevertheless the gallbladder was emptied using a
decompressing needle through the fundus of the gallbladder with evacuation of hydrops before A locking grasping forceps was placed on the fundus of the gallbladder where it was then retracted cephalad and to the right. Using appropriate grasping
instruments, the peritoneum overlying the triangle of Calot was incised and extended superiorly on both the anterior and posterior gallbladder howell. The infundibulum was dissected off the cystic plate. A 4 x 4 Ray-Sergey was placed at the base of
her field to help mop and trap any debris. The cystic artery was medialized, dissected and controlled with 2 proximal clips and 1 distal. There was still however some scar tissue in this area so we elected to do a top-down cholecystectomy. Using
a laparoscopic bipolar energy device the gallbladder was gently peeled off of the liver. There was significant amount of pus in this fat plane which was all suctioned up. We eventually narrowed down towards the cystic duct/gallbladder junction and
this was controlled proximally with a 0 PDS Endoloop. A ductotomy was made and a cholangiocatheter on an Henry clamp was inserted into the cystic duct. A C-arm was draped and brought into the field. An intra-operative cholangiogram was performed and
was noted to have:
No filling defects in the biliary tree
No significant biliary dilation
Brisk flow of contrast into the duodenum
Normal biliary anatomy
The catheter was then removed and the cystic duct was controlled with a second 0 PDS Endoloop distally. The stump was divided and then reinforced with two 5 mm titanium clips. There was a significant amount of spillage of pus but no overt stones
were dropped. The gallbladder bed was inspected and excellent hemostasis was obtained. The gallbladder was extracted through the 12 mm trocar site using an endocatch bag. The Ray-Sergey was removed. The abdomen was again irrigated and excellent
hemostasis was assured. All remaining trocars were then removed and the pneumoperitoneum was evacuated. A 19 [place]an round Martell drain was introduced through the right lower quadrant port and passed across our field. This was secured to the skin
with a 3-0 nylon suture. The 12 mm trocar site was closed using 0 PDS suture. All trocar sites were closed at the skin level using 4-0 Monocryl followed by Dermabond. Overall, the patient tolerated the procedure well and was taken to the Recovery
Room postoperatively in stable condition.
I was the attending physician and performed the procedure with assistance from the GAS SUBSTATION OPERATOR above. I was present for all portions of the case, excluding skin closure.
Lukas Armenta MD
[2024-07-17 14:34] LABS: Urine Albumin 2+ (Neg - Trace); Urine Bilirubin Negative (Negative); Urine Character Cloudy (Clear); Urine Color Yellow; Urine Glucose Negative (Negative); Urine Ketone Negative (Negative); Urine Leukocyte Negative (Negative); Urine Nitrite Negative (Negative); Urine Occult Blood Negative (Negative); Urine Urobilinogen Negative (Neg - 1+)
[2024-07-17 14:37] LABS: Glucose - Point of Care 167 mg/dl (70-99)
[2024-07-17 14:48] LABS: Urine Amorphous Seen; Urine Red Blood Cell 0-2 /HPF (0-2); Urine White Cell 0-2 /HPF (0-5)
--- NOTE | 2024-07-17 15:46 | CM ---
CM reviewed chart, patient seen bedside with family, initial assessment completed. Patient resides with his in a two level home, one step to enter. Patient has a cane and walker at home, currently on O2, does not wear home O2. Patient denies
VN/SNF history, has had outpatient PT in past. Patient PCP Maribel Jacinto, pharmacy [facility], reports they do not have prescription coverage. CM will watch for PT/OT evaluations when able. CM will continue to follow for all discharge planning
needs.
Plan; home with family, watch for PT/OT evals when able.
[2024-07-17] MEDS: NOVOLOG FLEXPEN-LOW RESISTANCE SC (16:07)
[2024-07-17] MEDS: ROCEPHIN 2000 MG IV (16:08)
[2024-07-17] MEDS: STERILE WATER FOR INJECTION 20 ML IV (16:09)
[2024-07-17] MEDS: FLAGYL 500 MG 100 IV ×2 (16:14→23:12)
[2024-07-17 16:41] LABS: Glucose - Point of Care 191 mg/dl (70-99)
[2024-07-17 22:06] LABS: Glucose - Point of Care 311 mg/dl (70-99)
[2024-07-18] VITALS (7 sets, daily range): BP systolic 108–137; BP diastolic 53–71; PULSE 80; O2SAT 95
[2024-07-18] MEDS: NSS 1000 IV ×2 (03:27→16:06)
[2024-07-18 06:59] LABS: Hematocrit 32.1 % (39.0-52.0); Hemoglobin 11.3 g/dL (13.0-18.0); Mean Corp Hgb Conc. 35.2 g/dL (33.0-37.0); Mean Corpuscular Hgb 30.5 pg (27.0-31.0); Mean Corpuscular Volume 86.8 fL (80.0-94.0); Mean Platelet Volume 10.3 fL (7.4-10.4); Platelet Count 208 10^3/uL (130-400); Red Cell Dist. Width 12.4 % (11.5-14.5)
[2024-07-18 07:19] LABS: ALT (SGPT) 48 U/L (0-50); AST (SGOT) 40 U/L (17-59); Albumin 2.3 g/dl (3.5-5.0); Alkaline Phosphatase 190 U/L (38-126); Blood Urea Nitrogen 81 mg/dl (9-20); Carbon Dioxide 21 mmol/L (22-30); Chloride 98 mmol/L (98-107); Estimated Creatinine Clearance 27 ml/min; Glucose 304 mg/dl (70-99); Potassium 3.7 mmol/L (3.5-5.1); Sodium 131 mmol/L (135-145); Total Bilirubin 0.7 mg/dl (0.2-1.3); Total Protein 4.9 g/dl (6.3-8.2); eGFR 31.51
[2024-07-18 07:50] LABS: Glucose - Point of Care 274 mg/dl (70-99)
[2024-07-18] MEDS: NOVOLOG FLEXPEN-LOW RESISTANCE 3 UNITS SC (09:27)
[2024-07-18] MEDS: FLAGYL 500 MG 100 IV ×2 (09:28→16:00)
[2024-07-18] MEDS: HEPARIN 5000 UNITS SC ×2 (09:28→16:01)
--- NOTE | 2024-07-18 11:03 | W.PN.HOSP.TC ---
Today's Communication/Plan
-
Assessment / Plan
Assessment / Plan
NAD
Scleral Anicteric
MMM
No JVD
CTABL
RRR, S1/S2
Soft, soreness in the right upper quadrant, MITCHELL drain noted with serosanguineous fluid
Warm, Dry
Pitting edema 1+ bilateral lower extremity
AAOx3
Calm
EColi bacteremia
-Likely intra-abdominal translocation
-Continue Rocephin
-Await culture speciation/sensitivities
-Await IOP Cx from Gallbladder
Acute cholecystitis/perforated/gangrenous
-S/p lap luis
-MITCHELL drain in place
-Follow up with surgery recs
-Advance diet as tolerated
JESSICA
-Improving
-IV fluid
Hyponatremia
-Improving
-Continue IV fluids encourage p.o. intake
Hypokalemia
-Resolved
Hypochloremia
-Resolved
Diabetes
-A1c 7.8
-On discharge depending on renal function potentially can be discharged on metformin
-Now Accu-Chek sliding scale goal blood glucose 1 40-1 80 carb controlled diet when able to tolerate low insulin sliding scale
Hypertension
-Resume amlodipine
-Continue to hold hydrochlorothiazide losartan
Anticipated Discharge: > 48 hours
Subjective/Interval History
-
Date of Service: July 18, 2024
Seen and examined. No new complaints. No acute overnight events.
Objective Data
-
Labs:
Laboratory Results
07/18/24
06:14
WBC 17.0 H
Hgb 11.3 L
Hct 32.1 L
Plt Count 208
Sodium 131 L
Potassium 3.7
Chloride 98
Carbon Dioxide 21 L
BUN 81 H
Creatinine 2.0 H
Glucose 304 H
Calcium 8.0 L
Total Bilirubin 0.7
AST 40
ALT 48
Alkaline Phosphatase 190 H
Vital Signs:
Vital Signs
Temp Pulse Resp BP Pulse Ox
97.4 F 85 20 137/56 92
07/18/24 07:00 07/18/24 07:00 07/18/24 07:00 07/18/24 07:00 07/18/24 07:00
I&O
07/17/24 07/18/24 07/19/24
06:59 06:59 06:59
Intake Total 1770 / 1770
Output Total 1380 / 1380
Balance 390 / 390
--- NOTE | 2024-07-18 11:42 | W.PN.GS2 ---
Today's Communication / Plan
-
-- LFD
-- IVF per hospitalist in the setting of an JESSICA, can likely decrease over the next 24 to 48 hours
-- Antibiotics: Ceftriaxone and Flagyl, operative cultures pending
-- MITCHELL drain likely to be DC'd on discharge
Assessment / Plan
-
Patient is an 89 yo M p/w acute cholecystitis
POD#1 s/p laparoscopic cholecystectomy with IOC
AVSS
Labs notable for downtrending WBC, stable Hb, hyponatremia, improved JESSICA, normal bilirubin and LFTs
Blood cultures positive for E. coli, operative cultures showing gram-negative bacilli
Recovering well. No postoperative concerns. Plan for monitoring in the hospital for dietary advancement, continued IV antibiotic treatment especially in light of positive blood cultures, and drain management. Tentative plan for dispo either
tomorrow or Saturday pending other medical comorbidities.
-- LFD
-- Pain control: Tylenol and IV Dilaudid as needed
-- IVF per hospitalist in the setting of an JESSICA, can likely decrease over the next 24 to 48 hours
-- Antibiotics: Ceftriaxone and Flagyl, operative cultures pending
-- OOB/ambulate
-- DVT: SQH
-- MITCHELL drain likely to be DC'd on discharge
Subjective Data
-
Date of Service: July 18, 2024
No complaints. Pain well-controlled. No nausea or vomiting. Afebrile.
Objective Data
-
Intake and Output
07/17/24 07/18/24 07/19/24
06:59 06:59 06:59
Intake Total 1770 / 1770
Output Total 1380 / 1380
Balance 390 / 390
Intake:
Oral fluids 720 / 720
IV fluids (Total) 950 / 950
Normosol 50 / 50
IV piggybacks 100 / 100
Output:
Drain Output (Total) 130 / 130
Right Abdomen Vini-Penn 130 / 130
Urine, Voided 1250 / 1250
Other:
Number of approximated MODERATE 1
amounts of urine
How many times incontinent 0
MODERATE amount urine
How many times incontinent 1
SATURATED amount urine
Vital Signs
Temp Pulse Resp BP Pulse Ox
97.4 F 85 20 137/56 92
07/18/24 07:00 07/18/24 07:00 07/18/24 07:00 07/18/24 07:00 07/18/24 07:00
Lab Results
07/18/24 06:14
07/18/24 06:14
Calcium 8.0 mg/dl (8.4-10.2) L 07/18/24 06:14
Total Bilirubin 0.7 mg/dl (0.2-1.3) 07/18/24 06:14
AST 40 U/L (17-59) 07/18/24 06:14
ALT 48 U/L (0-50) 07/18/24 06:14
Alkaline Phosphatase 190 U/L (38-126) H 07/18/24 06:14
Total Protein 4.9 g/dl (6.3-8.2) L 07/18/24 06:14
Albumin 2.3 g/dl (3.5-5.0) L 07/18/24 06:14
Physical Exam
-
Gen: NAD
Abd: soft, NT/ND, obese, non-peritoneal, incisions c/d/i - no erythema, ecchymosis, or drainage, MITCHELL serous, nonbilious
Patient has a rios catheter: No
Patient has a central line: No
[2024-07-18 11:53] LABS: Glucose - Point of Care 380 mg/dl (70-99)
[2024-07-18] MEDS: NORVASC 5 MG PO (11:57)
[2024-07-18] MEDS: NOVOLOG FLEXPEN-LOW RESISTANCE 5 UNITS SC (12:00)
[2024-07-18 15:54] LABS: Glucose - Point of Care 334 mg/dl (70-99)
[2024-07-18] MEDS: ROCEPHIN 2000 MG IV (15:59)
[2024-07-18] MEDS: STERILE WATER FOR INJECTION 20 ML IV (15:59)
[2024-07-18] MEDS: NSS IV (16:06)
[2024-07-18] MEDS: NOVOLOG FLEXPEN-MODERATE RESISTANCE 7 UNITS SC (17:57)
[2024-07-18 21:14] LABS: Glucose - Point of Care 367 mg/dl (70-99)
[2024-07-19] MEDS: HEPARIN 5000 UNITS SC ×3 (00:37→17:44)
[2024-07-19] MEDS: FLAGYL 500 MG 100 IV ×2 (00:37→09:17)
[2024-07-19 03:42] VITALS: BP 116/57
[2024-07-19] MEDS: NSS 1000 IV ×2 (05:33→21:32)
[2024-07-19 07:00] VITALS: BP 140/66
[2024-07-19 07:09] LABS: Glucose - Point of Care 403 mg/dl (70-99)
[2024-07-19 07:51] LABS: Hematocrit 32.5 % (39.0-52.0); Hemoglobin 11.4 g/dL (13.0-18.0); Mean Corp Hgb Conc. 35.1 g/dL (33.0-37.0); Mean Corpuscular Hgb 30.6 pg (27.0-31.0); Mean Corpuscular Volume 87.1 fL (80.0-94.0); Mean Platelet Volume 10.2 fL (7.4-10.4); Platelet Count 257 10^3/uL (130-400); Red Blood Cell Count 3.73 10^6/uL (4.70-6.10); Red Cell Dist. Width 12.3 % (11.5-14.5); White Blood Cell Count 21.2 10^3/uL (4.8-10.8)
[2024-07-19 08:09] LABS: Blood Urea Nitrogen 78 mg/dl (9-20); Carbon Dioxide 22 mmol/L (22-30); Chloride 102 mmol/L (98-107); Estimated Creatinine Clearance 30 ml/min; Glucose 342 mg/dl (70-99); Potassium 3.6 mmol/L (3.5-5.1); Sodium 133 mmol/L (135-145); eGFR 35.76
[2024-07-19] MEDS: NOVOLIN N vial 0.05 UNITS SC (09:15)
[2024-07-19] MEDS: NOVOLOG FLEXPEN-MODERATE RESISTANCE 10 UNITS SC (09:16)
[2024-07-19] MEDS: NOVOLOG FLEXPEN 3 UNITS SC (09:16)
[2024-07-19] MEDS: NORVASC 5 MG PO (09:17)
--- NOTE | 2024-07-19 10:45 | PTCARENOTE ---
Pt's MITCHELL drain bulb isn't staying suctioned. Observed a leak in the tubing. Tape applied over small hole and the bulb stays suctioned. IN SERVICE EDUCATION TEACHER made aware via TT. IN SERVICE EDUCATION TEACHER spoke with surgery and everything is ok. Drain continues to collect drainage.
[2024-07-19 11:21] LABS: Glucose - Point of Care 355 mg/dl (70-99)
--- NOTE | 2024-07-19 11:33 | W.PN.HOSP.TC ---
Addendum entered and electronically signed by Elvis Glynn MD 07/19/24 12:10:
Uncontrolled hyperglycemia
Will give 5 units NPH
Moderate resistance sliding scale
Lispro 3 units added one-time dose
Lantus 5 units to start tonight
Original Note:
Today's Communication/Plan
-
Bowel regimen
Abdominal series
MITCHELL drain remains in place
Advance diet as tolerated
Follow-up surgery recommended
Follow-up sensitivities from gallbladder culture and blood culture
Assessment / Plan
Assessment / Plan
NAD
Scleral Anicteric
MMM
No JVD
CTABL
RRR, S1/S2
Soft, soreness in the right upper quadrant, MITCHELL drain noted with serosanguineous fluid
Warm, Dry
Pitting edema 1+ bilateral lower extremity
AAOx3
Calm
EColi bacteremia
-Likely intra-abdominal translocation
-Await culture speciation/sensitivities
-Await IOP Cx from Gallbladder which is now growing GNR's I suspect likely E. coli
-Discontinue anaerobic metronidazole coverage, continue Rocephin
Acute cholecystitis/perforated/gangrenous
-S/p lap luis
-MITCHELL drain in place
-Follow up with surgery recs
-Advance diet as tolerated
Constipation
-Start bowel regimen
-Will obtain abdominal x-ray to ensure no ileus/obstruction postoperatively
JESSICA
-Improving
-IV fluid
Hyponatremia
-Improving
-Continue IV fluids encourage p.o. intake
Hypokalemia
-Resolved
Hypochloremia
-Resolved
Diabetes
-A1c 7.8
-On discharge depending on renal function potentially can be discharged on metformin
-Now Accu-Chek sliding scale goal blood glucose 1 40-1 80 carb controlled diet when able to tolerate low insulin sliding scale
Hypertension
-Resume amlodipine
-Continue to hold hydrochlorothiazide losartan
Anticipated Discharge: > 48 hours
Subjective/Interval History
-
Date of Service: July 19, 2024
Seen and examined. No new complaints. No acute overnight events.
Was informed by nursing that was hypoglycemic.
Trend
Was on clear liquid diet yesterday recently child
Passing minimal gas, has not had a bowel movement since surgery
Objective Data
-
Labs:
Laboratory Results
07/19/24
06:39
WBC 21.2 H
Hgb 11.4 L
Hct 32.5 L
Plt Count 257 D
Sodium 133 L
Potassium 3.6
Chloride 102
Carbon Dioxide 22
BUN 78 H
Creatinine 1.8 H
Glucose 342 H
Calcium 8.0 L
Vital Signs:
Vital Signs
Temp Pulse Resp BP Pulse Ox
98.1 F 81 18 140/66 96
07/19/24 07:00 07/19/24 07:00 07/19/24 07:00 07/19/24 07:00 07/19/24 07:00
I&O
07/18/24 07/19/24 07/20/24
06:59 06:59 06:59
Intake Total 1770 / 1770 1580 / 1580
Output Total 1380 / 1380 900 / 900
Balance 390 / 390 680 / 680
[2024-07-19] MEDS: SENNA SYRUP 8.8 MG PO ×2 (11:54→21:33)
[2024-07-19] MEDS: NOVOLOG FLEXPEN-MODERATE RESISTANCE 9 UNITS SC (11:55)
[2024-07-19] MEDS: MIRALAX 17 GRAMS PO (11:55)
--- NOTE | 2024-07-19 13:33 | W.PN.GS2 ---
Today's Communication / Plan
-
-- No major changes
-- Trend WBC, continue abx
-- Repeat LFTs
Assessment / Plan
-
Patient is an 89 yo M p/w acute cholecystitis
POD#2 s/p laparoscopic cholecystectomy with IOC
AVSS
Labs notable for increased WBC, repeat LFTs pending
Blood cultures positive for E. coli, operative cultures showing gram-negative bacilli
Clinically improved. Uncertain to exactly make of his increased WBC. Differential includes poor glucose control, decreased abx coverage (noted to have tailored antibiotics down to Ceftriaxone, appropriate based on his culture results), bile leak
(MITCHELL bulb replaced, repeat LFTs ordered). No urinary or cardiopulmonary symptoms. Will need to monitor his WBC trend closely. Otherwise recovering well.
-- LFD
-- Pain control: Tylenol and Oxycodone as as needed
-- IVF per hospitalist in the setting of an JESSICA, can likely decrease over the next 24 to 48 hours
-- Antibiotics: Ceftriaxone based on operative and blood cultures
-- OOB/ambulate
-- DVT: SQH
-- MITCHELL drain to remain in place for now
Subjective Data
-
Date of Service: July 19, 2024
Feels improved. No complaints. Denies worsening abdominal pain. No nausea or vomiting. No fevers.
Objective Data
-
Intake and Output
07/18/24 07/19/24 07/20/24
06:59 06:59 06:59
Intake Total 1770 / 1770 1580 / 1580
Output Total 1380 / 1380 900 / 900
Balance 390 / 390 680 / 680
Intake:
Oral fluids 720 / 720 480 / 480
IV fluids (Total) 950 / 950 1000 / 1000
Normosol 50 / 50
IV piggybacks 100 / 100 100 / 100
Output:
Drain Output (Total) 130 / 130
Right Abdomen Vini-Penn 130 / 130
Urine, Voided 1250 / 1250 900 / 900
Other:
Number of approximated SMALL 1
amounts of urine
Number of approximated MODERATE 1
amounts of urine
How many times incontinent 0
MODERATE amount urine
How many times incontinent 1
SATURATED amount urine
Vital Signs
Temp Pulse Resp BP Pulse Ox
98.1 F 81 18 140/66 96
07/19/24 07:00 07/19/24 07:00 07/19/24 07:00 07/19/24 07:00 07/19/24 07:00
Lab Results
07/19/24 06:39
07/19/24 06:39
Calcium 8.0 mg/dl (8.4-10.2) L 07/19/24 06:39
Total Bilirubin 0.7 mg/dl (0.2-1.3) 07/18/24 06:14
AST 40 U/L (17-59) 07/18/24 06:14
ALT 48 U/L (0-50) 07/18/24 06:14
Alkaline Phosphatase 190 U/L (38-126) H 07/18/24 06:14
Total Protein 4.9 g/dl (6.3-8.2) L 07/18/24 06:14
Albumin 2.3 g/dl (3.5-5.0) L 07/18/24 06:14
Physical Exam
-
Gen: NAD
Abd: soft, NT/ND, obese, non-peritoneal, incisions c/d/i - no erythema, ecchymosis or drainage, MITCHELL found to be disconnected from bulb, original bulb unable to be found and was replaced
Patient has a rios catheter: No
Patient has a central line: No
[2024-07-19 14:45] LABS: ALT (SGPT) 36 U/L (0-50); AST (SGOT) 22 U/L (17-59); Albumin 2.6 g/dl (3.5-5.0); Alkaline Phosphatase 171 U/L (38-126); Direct Bilirubin 0.3 mg/dl (0.0-0.4); Total Bilirubin 0.6 mg/dl (0.2-1.3); Total Protein 5.2 g/dl (6.3-8.2)
[2024-07-19 15:00] VITALS: BP 154/68
[2024-07-19] MEDS: STERILE WATER FOR INJECTION 10 ML IV (15:00)
[2024-07-19] MEDS: ROCEPHIN 1000 MG IV (15:00)
[2024-07-19 15:23] LABS: Glucose - Point of Care 217 mg/dl (70-99)
[2024-07-19] MEDS: NOVOLOG FLEXPEN-MODERATE RESISTANCE 3 UNITS SC (17:45)
[2024-07-19 19:54] VITALS: BP 159/74
[2024-07-19 21:25] LABS: Glucose - Point of Care 236 mg/dl (70-99)
[2024-07-19] MEDS: LANTUS 0.05 UNITS SC (21:32)
[2024-07-19 23:29] VITALS: BP 133/79
[2024-07-20] MEDS: HEPARIN 5000 UNITS SC ×4 (00:47→23:19)
[2024-07-20 03:40] VITALS: BP 131/61
[2024-07-20] MEDS: NSS 1000 IV ×2 (06:25→16:03)
[2024-07-20 07:00] VITALS: BP 128/60
[2024-07-20 07:50] LABS: Glucose - Point of Care 218 mg/dl (70-99)
[2024-07-20 08:01] LABS: Hematocrit 34.1 % (39.0-52.0); Hemoglobin 11.8 g/dL (13.0-18.0); Mean Corp Hgb Conc. 34.6 g/dL (33.0-37.0); Mean Corpuscular Hgb 30.4 pg (27.0-31.0); Mean Corpuscular Volume 87.9 fL (80.0-94.0); Mean Platelet Volume 9.9 fL (7.4-10.4); Platelet Count 285 10^3/uL (130-400); Red Blood Cell Count 3.88 10^6/uL (4.70-6.10); Red Cell Dist. Width 12.5 % (11.5-14.5); White Blood Cell Count 17.3 10^3/uL (4.8-10.8)
[2024-07-20] MEDS: MIRALAX 17 GRAMS PO (08:37)
[2024-07-20] MEDS: NORVASC 5 MG PO (08:37)
[2024-07-20] MEDS: SENNA SYRUP 8.8 MG PO ×2 (08:37→20:56)
[2024-07-20] MEDS: NSS IV ×2 (08:37→08:46)
--- NOTE | 2024-07-20 08:37 | W.PN.HOSP.TC ---
Today's Communication/Plan
-
-Blood culture ordered
-Continue Iv fluids at Maintenance 75/ml
-Started NovoLog 3 units AC
-Continue Lantus 5 unit HS
-Follow BG, CBC, CMP
Assessment / Plan
Assessment / Plan
PLAN
#EColi bacteremia
-Possibly secondary to intra-abdominal translocation
-Blood culture 07/16: E. coli//-Wound culture 07/17: E. coli: Sensitive to ceftriaxone
-On IV Rocephin-continue
-WBC still elevated but trending down
-Blood culture ordered
-Continue IV fluids
#Acute cholecystitis/perforated/gangrenous
-S/p lap cholecystectomy- IOC does not show any filling defect
-MITCHELL drain removed with minimal drainage with pus this a.m.
-Surgery on board-okay to discharge when patient medically clearenced
-Advance diet as tolerated
#Constipation
-Continue bowel regimen
-Patient has flatulence-small bowel movements per patient report
-Abdominal x-ray 07/19/2024: Mild to moderate gaseous distention of the colon mainly involving the right colon and transverse colon, most likely a mild focal ileus
JESSICA
-Improving
-Continue IV fluid
Hyponatremia/hypokalemia/hypochloremia
-Resolved
-Continue IV fluids encourage p.o. intake
#Diabetes melitis
-No home medication
-hgb A1c 7.8
-Started on NovoLog 3 units AC
-Continue Lantus 5 units HS
-Will follow BG levels to adjust his insulin dose need
-Metformin can be considered as discharge medication
-ISS with a goal blood glucose of 140-180
-Diabetic diet
Hypertension
-Continue amlodipine
-Continue to hold hydrochlorothiazide losartan
Anticipated Discharge: 24 - 48 hours
Subjective/Interval History
-
Date of Service: July 20, 2024
Patient reports mild abdominal discomfort this morning. He denies fever and chills. Patient has flatulence and reports no bowel movement since admission.
Objective Data
-
Labs:
Laboratory Results
07/20/24
07:35
WBC 17.3 H
Hgb 11.8 L
Hct 34.1 L
Plt Count 285
Sodium Pending
Potassium Pending
Chloride Pending
Carbon Dioxide Pending
BUN Pending
Creatinine Pending
Glucose Pending
Calcium Pending
Total Bilirubin Pending
AST Pending
ALT Pending
Alkaline Phosphatase Pending
Vital Signs:
Vital Signs
Temp Pulse Resp BP Pulse Ox
97.7 F 80 16 128/60 97
07/20/24 07:00 07/20/24 07:00 07/20/24 07:00 07/20/24 07:00 07/20/24 07:00
I&O
07/19/24 07/20/24 07/21/24
06:59 06:59 06:59
Intake Total 1580 / 1580 120 / 120
Output Total 900 / 900 555 / 555
Balance 680 / 680 -435 / -435
Review of Systems
-
History Source: Patient
EENT: Reports No Symptoms Reported
Respiratory: Reports No Symptoms
Cardiac: Reports No Symptoms
Abdomen/GI: Reports Other (Reports abdominal discomfort)
Genitourinary: Reports No Symptoms
Musculoskeletal: Reports Other (Generalized muscle weakness)
Skin: Reports No Symptoms
Neuro: Reports No Symptoms
Physical Exam
-
General: Well Developed, Well Nourished, Appears Chronically Ill and Obese
HEENT: Normocephalic and Atraumatic
Respiratory: Clear to Auscultation
Cardiac: Regular Rhythm and S1/S2
GI: Soft, Nontender, Nondistended, Tender (Mild abdominal tenderness on right upper quadrant) and Other
Musculoskeletal: No Clubbing, No Cyanosis, Edema, Left Upper Extrem and Edema, Right Lower Extrem
Skin: Warm
Neuro: Awake, Alert, Oriented and AO x 3
Psych: Calm
[2024-07-20] MEDS: NOVOLOG FLEXPEN-MODERATE RESISTANCE 3 UNITS SC (08:38)
[2024-07-20 08:42] LABS: ALT (SGPT) 40 U/L (0-50); AST (SGOT) 43 U/L (17-59); Albumin 2.2 g/dl (3.5-5.0); Alkaline Phosphatase 164 U/L (38-126); Blood Urea Nitrogen 67 mg/dl (9-20); Calcium 8.1 mg/dl (8.4-10.2); Carbon Dioxide 22 mmol/L (22-30); Chloride 106 mmol/L (98-107); Estimated Creatinine Clearance 38 ml/min; Glucose 234 mg/dl (70-99); Potassium 3.8 mmol/L (3.5-5.1); Sodium 135 mmol/L (135-145); Total Bilirubin 0.7 mg/dl (0.2-1.3); Total Protein 4.8 g/dl (6.3-8.2); eGFR 48.34
--- NOTE | 2024-07-20 09:46 | W.PN.GS2 ---
Today's Communication / Plan
-
c/w abx
ADA diet
Assessment / Plan
-
Patient is an 89 yo M p/w acute cholecystitis
POD#3 s/p laparoscopic cholecystectomy with IOC
AVSS
Labs notable for increased WBC although trending down, LFTs WNL
Hyperglycemia being followed by hospitalist team, previously on no diabetic meds
JESSICA continues to improve
Blood cultures and operative cultures both positive for E. coli, on ceftriaxone which is culture sensitive
Constipation present, on bowel regimen
Doing well from post operative standpoint: minimal pain, tolerating diet, serous outputs from MITCHELL
-- ADA diet
-- Pain control: Tylenol and Oxycodone as as needed
-- Antibiotics: Ceftriaxone based on operative and blood cultures
-- OOB/ambulate. PT consulted
-- C/W bowel regimen
-- Blood glucose management as per primary team
-- DVT: SQH
-- MITCHELL drain removed at bedside
Dispo planning as per primary team, ok for discharge from surgical standpoint once medically ready
Subjective Data
-
Date of Service: July 20, 2024
Patient seen and examined at bedside with Dr. Armenta. Denies n/v. Passing flatus but no BM since surgery. OOB to chair but notes he is stiff and having difficulty moving since surgery. Denies pain.
Objective Data
-
Intake and Output
07/19/24 07/20/24 07/21/24
06:59 06:59 06:59
Intake Total 1580 / 1580 120 / 120
Output Total 900 / 900 555 / 555
Balance 680 / 680 -435 / -435
Intake:
Oral fluids 480 / 480 120 / 120
IV fluids (Total) 1000 / 1000
IV piggybacks 100 / 100
Output:
Drain Output (Total) 105 / 105
Right Abdomen Vini-Penn 105 / 105
Urine, Voided 900 / 900 450 / 450
Other:
Number of approximated SMALL 1
amounts of urine
Number of approximated MODERATE 1 1
amounts of urine
How many times incontinent 0
MODERATE amount urine
Vital Signs
Temp Pulse Resp BP Pulse Ox
97.7 F 80 16 128/60 97
07/20/24 07:00 07/20/24 07:00 07/20/24 07:00 07/20/24 07:00 07/20/24 08:00
Lab Results
07/20/24 07:35
07/20/24 07:35
Calcium 8.1 mg/dl (8.4-10.2) L 07/20/24 07:35
Total Bilirubin 0.7 mg/dl (0.2-1.3) 07/20/24 07:35
Direct Bilirubin 0.3 mg/dl (0.0-0.4) 07/19/24 14:20
AST 43 U/L (17-59) 07/20/24 07:35
ALT 40 U/L (0-50) 07/20/24 07:35
Alkaline Phosphatase 164 U/L (38-126) H 07/20/24 07:35
Total Protein 4.8 g/dl (6.3-8.2) L 07/20/24 07:35
Albumin 2.2 g/dl (3.5-5.0) L 07/20/24 07:35
Physical Exam
-
Gen: NAD
Abd: soft, NT/ND, obese, non-peritoneal, incisions c/d/i - no erythema, ecchymosis or drainage, MITCHELL with serous fluid
[2024-07-20 10:00] VITALS: BP 138/106
--- NOTE | 2024-07-20 10:41 | CM ---
CM reviewed chart, patient seen bedside with . CM discussed PT recommendations of SNF. Patient would prefer home therapy, reports he has an elevator at home, feels he would be more successful at home with therapy than short term rehab. Patient
agreeable to referral to [facility]. IMM reviewed, signed by , placed in chart, patient/ provided with a copy. CM will continue to follow for all discharge planning needs.
Plan; home with referral to [facility]
[2024-07-20 11:00] VITALS: BP 131/62
[2024-07-20 12:08] LABS: Glucose - Point of Care 277 mg/dl (70-99)
--- NOTE | 2024-07-20 12:25 | VNURNOTE ---
Registered Nurse Maternal Child met with patient AND SPOUSE to discuss [facility] nurse/therapy, visits, schedule and homebound status. Patient is agreeable and understands that visits at home will be 2-3 x per week to assess and teach medical management.
[facility] contact information provided. Patient is aware that [facility] will contact them for start of care after discharge from .
[facility] referral completed in [facility].
[2024-07-20] MEDS: NOVOLOG FLEXPEN 3 UNITS SC ×2 (13:24→17:31)
[2024-07-20] MEDS: NOVOLOG FLEXPEN-MODERATE RESISTANCE 5 UNITS SC ×2 (13:25→17:31)
[2024-07-20] MEDS: STERILE WATER FOR INJECTION 10 ML IV (13:35)
[2024-07-20] MEDS: ROCEPHIN 1000 MG IV (13:36)
[2024-07-20 15:00] VITALS: BP 124/66
--- NOTE | 2024-07-20 15:34 | W.PN.UPDATE ---
Update Note
Progress Note Update
I saw and evaluated the patient. I reviewed the resident�s note and agree with findings and plan as documented in the resident�s note. EColi bacteremia
Ecoli bacteremia
Acute perforated gangrenous cholecystitis
-E. coli partially sensitive to antibiotics. Currently on Rocephin based on susceptibility
-Status post laparoscopic cholecystectomy
-MITCHELL drain has been removed today
-If patient spikes fever will require repeat blood culture
-Diet per GS
Constipation
-Abdominal x-ray reviewed.
-Present bowel sounds on exam
-Continue monitoring
JESSICA
-Improving, creatinine down to 1.4
-Continue monitoring
Hyponatremia
-Improving
-Continue IV fluids encourage p.o. intake
Hypokalemia
-Resolved
Type II DM
-A1c 7.8
-Adding NovoLog 3 unit AC, maintain on ISS
Essential HTN
-Maintained on Norvasc. PEPE/ARB remains on hold
[2024-07-20 16:22] LABS: Glucose - Point of Care 267 mg/dl (70-99)
[2024-07-20 20:59] LABS: Glucose - Point of Care 201 mg/dl (70-99)
[2024-07-20] MEDS: LANTUS 0.05 UNITS SC (21:00)
[2024-07-20 23:30] VITALS: BP 97/78
[2024-07-21 00:14] VITALS: BP 142/70
[2024-07-21] MEDS: NSS 1000 IV (05:18)
[2024-07-21 07:00] VITALS: BP 145/65
--- NOTE | 2024-07-21 07:21 | W.PN.HOSP.TC ---
Today's Communication/Plan
-
Discharge today
Assessment / Plan
Assessment / Plan
PLAN
#EColi bacteremia
-Possibly secondary to intra-abdominal translocation due acute perforated gangrenous cholecystitis
-Blood culture 07/16: E. coli//-Wound culture 07/17: E. coli: Sensitive to ceftriaxone
-IV Rocephin was switched to Cipro 750 mg PO form
-WBC still elevated but trending down
-Blood culture follow
#Acute cholecystitis/perforated/gangrenous
-S/p lap cholecystectomy - IOC does not show any filling defect
-MITCHELL drain removed ON 07/20/24
-Surgery on board-okay to discharge when patient medically stable
-Advance diet as tolerated
#Constipation
-Resolved
-Continue bowel regimen
-Patient has flatulence
JESSICA
-Improving
-Continue IV fluid
-Cr 1.4
Hyponatremia/hypokalemia/hypochloremia
-Resolved
-Continue IV fluids encourage p.o. intake
#Diabetes melitis
-No home medication
-hgb A1c 7.8
-Started on NovoLog 3 units AC
-Continue Lantus 5 units HS
-Will follow BG levels to adjust his insulin dose need
-Metformin can be considered as discharge medication
-ISS with a goal blood glucose of 140-180
-Diabetic diet
Hypertension
-Continue amlodipine
-Continue to hold hydrochlorothiazide losartan
DVT
-Heparin
Anticipated Discharge: Today
Subjective/Interval History
-
Date of Service: July 21, 2024
Patient reports minimal abdominal discomfort. Reports having flatulence.
Objective Data
-
Labs:
Laboratory Results
07/21/24
06:52
WBC Pending
Hgb Pending
Hct Pending
Plt Count Pending
Sodium Pending
Potassium Pending
Chloride Pending
Carbon Dioxide Pending
BUN Pending
Creatinine Pending
Glucose Pending
Calcium Pending
Total Bilirubin Pending
AST Pending
ALT Pending
Alkaline Phosphatase Pending
Vital Signs:
Vital Signs
Temp Pulse Resp BP Pulse Ox
98.1 F 81 16 142/70 98
07/20/24 23:30 07/21/24 00:14 07/20/24 23:30 07/21/24 00:14 07/20/24 23:30
I&O
07/20/24 07/21/24 07/22/24
06:59 06:59 06:59
Intake Total 120 / 120 1560 / 1560
Output Total 555 / 555
Balance -435 / -435 1560 / 1560
Review of Systems
-
History Source: Patient
EENT: Reports No Symptoms Reported
Respiratory: Reports No Symptoms
Cardiac: Reports No Symptoms
Abdomen/GI: Reports Other (Reports abdominal discomfort)
Genitourinary: Reports No Symptoms
Musculoskeletal: Reports Other (Generalized muscle weakness)
Skin: Reports No Symptoms
Neuro: Reports No Symptoms
Physical Exam
-
General: Well Developed, Well Nourished, Appears Chronically Ill and Obese
HEENT: Normocephalic, Atraumatic and Moist Mucous Membranes
Respiratory: Clear to Auscultation
Cardiac: Regular Rhythm and S1/S2
GI: Soft, Nontender, Nondistended and Other (No hematoma or drainage from drain area- drain removed on 07/20/24 )
Musculoskeletal: No Clubbing, No Cyanosis, Edema, Left Upper Extrem and Edema, Right Lower Extrem
Skin: Warm
Neuro: Awake, Alert, Oriented and AO x 3
[2024-07-21 08:07] LABS: Glucose - Point of Care 136 mg/dl (70-99)
[2024-07-21 08:10] LABS: Hematocrit 35.1 % (39.0-52.0); Hemoglobin 12.1 g/dL (13.0-18.0); Mean Corp Hgb Conc. 34.5 g/dL (33.0-37.0); Mean Corpuscular Hgb 30.6 pg (27.0-31.0); Mean Corpuscular Volume 88.6 fL (80.0-94.0); Mean Platelet Volume 9.7 fL (7.4-10.4); Platelet Count 312 10^3/uL (130-400); Red Blood Cell Count 3.96 10^6/uL (4.70-6.10); Red Cell Dist. Width 12.8 % (11.5-14.5); White Blood Cell Count 20.5 10^3/uL (4.8-10.8)
[2024-07-21] MEDS: NOVOLOG FLEXPEN-MODERATE RESISTANCE SC (08:13)
[2024-07-21] MEDS: HEPARIN 5000 UNITS SC (08:33)
[2024-07-21] MEDS: NORVASC 5 MG PO (08:34)
[2024-07-21] MEDS: MIRALAX PO ×2 (08:34→08:36)
[2024-07-21] MEDS: SENNA SYRUP PO ×2 (08:34→08:37)
[2024-07-21 08:42] LABS: AST (SGOT) 69 U/L (17-59); Albumin 2.2 g/dl (3.5-5.0); Alkaline Phosphatase 170 U/L (38-126); Blood Urea Nitrogen 52 mg/dl (9-20); Carbon Dioxide 25 mmol/L (22-30); Chloride 108 mmol/L (98-107); Estimated Creatinine Clearance 38 ml/min; Glucose 124 mg/dl (70-99); Total Bilirubin 0.7 mg/dl (0.2-1.3); Total Protein 4.6 g/dl (6.3-8.2); eGFR 48.34
[2024-07-21 08:54] LABS: ALT (SGPT) 62 U/L (0-50); Calcium 8.1 mg/dl (8.4-10.2); Potassium 3.8 mmol/L (3.5-5.1); Sodium 138 mmol/L (135-145)
[2024-07-21] MEDS: NOVOLOG FLEXPEN 3 UNITS SC (09:22)
--- NOTE | 2024-07-21 12:02 | CM ---
CM reviewed chart, patient seen bedside with daughter and , other daughter Estrellita on speaker phone, discussed plan for discharge today with [facility]. Family will provide transportation home, daughter Estrellita will be here around 1:30 p.m. CM will
continue to follow for all discharge planning needs.
Plan; home with [facility], family to transport
[2024-07-21 12:44] LABS: Glucose - Point of Care 252 mg/dl (70-99)
[2024-07-21] MEDS: NOVOLOG FLEXPEN-MODERATE RESISTANCE 5 UNITS SC (12:56)
[2024-07-21] MEDS: NOVOLOG FLEXPEN 4 UNITS SC (12:58)
[2024-07-21] MEDS: STERILE WATER FOR INJECTION 10 ML IV (13:24)
[2024-07-21] MEDS: ROCEPHIN 1000 MG IV (13:24)
--- NOTE | 2024-07-21 13:53 | W.PN.UPDATE ---
Update Note
Progress Note Update
I saw and evaluated the patient. I reviewed the resident�s note and agree with findings and plan as documented in the resident�s note. EColi bacteremia
Ecoli bacteremia
Acute perforated gangrenous cholecystitis
-E. coli partially sensitive to antibiotics. Currently on Rocephin based on susceptibility
-Status post laparoscopic cholecystectomy
-MITCHELL drain has been removed
-At discharge patient being discharged on levofloxacin 750 mg daily for 7 days
Constipation -resolved
-Abdominal x-ray reviewed.
-Present bowel sounds on exam
-Continue monitoring
JESSICA - resolved
-Cr close to baseline.
-Continue monitoring
Hyponatremia -resolved
Hypokalemia
-Resolved
Type II DM
-A1c 7.8
-discharge on metformin 500mg/bid, will need to f/u with PCP
Essential HTN
-Maintained on Norvasc. PEPE/ARB remains on hold
More than 30 minutes spent in discharge including
Final examination of the patient
Summarizing hospital stay
Instructions for continuing care to all relevant caregivers
Preparation of discharge records, prescriptions, and referral forms
Total time spent (in minutes): 39 mins
--- NOTE | 2024-07-21 14:24 | PN.CDI ---
CDI
- -
CDI:
Physician Documentation Request
Admit Date: 07/16/24 22:24
Dear Doctor Renard,
Please review the following and provide your response in the progress notes.
Clinical Indicators:
The diagnosis of sepsis was documented on H&P but is not consistently noted in subsequent documentation.
- 07/16 H&P 'Severe Sepsis suspect secondary to acute cholecystitis'
- 'saw his PCP today who noted him to have a fever of 101.5F in the office today '
- 07/17 PN 'Sepsis highly possibly secondary to acute cholecystitis'
- WBC 19.9
- IV abx ceftriaxone, unasyn
- 11L IVF
- 07/17 Op Report 'Gangrenous, perforated cholecystitis; right upper quadrant abscess'
Please clarify the following:
____ - Sepsis was present on admission and is now resolved.
____ - Sepsis was present on admission and is still being monitored, evaluated or treated
____ - Sepsis was ruled out
____ - Other
Use of terms such as suspected, likely, concern for, or probable (associated with a specific diagnosis that is being evaluated, monitored, or treated as if it exists) are acceptable and can be coded in the inpatient setting, when documented at the
time of discharge.
Thank you,
India Holt RN
CDI Specialist
Please use your independent medical judgment in providing your response.
--- NOTE | 2024-07-21 15:14 | W.DCSUMMARY ---
Discharge Summary
Discharge Data
Date of Admission: 07/16/24
Date of Discharge: 07/21/24
-
Pending Results: No
Hospital Course
Disposition : Home with home care
Primary care physician : Maribel Jacinto MD
Principal Discharge diagnosis : Sepsis possibly secondary to gangrenous cholecystitis, Acute Kidney Injury and Hypovolemic Hyponatremia, Type II DM
Chronic Discharge diagnosis : Hypertension, hyperlipidemia
Hospital Course :
#Gangrenous cholecystitis: The patient also presented to the ER on 07/16/24complaining from fever, weakness, anorexia and abdominal pain past last week. He was obtained an abdominal CT which noted prominent gallbladder/pericholecystic stranding and
possible wall thickening suggestive of occult cholecystitis. He was consulted to general surgery and had a cholecystectomy on 07/17/24. He was found having gangrenous and perforated cholecystitis along right upper quadrant abscess at the surgery.
He was placed a drain and his drain removed on 07/20/24. His blood culture and wound culture did grow E. coli. Patient's antibiotic narrowed to Rocephin based on culture sensitivity result. The patient gradually improved. He did not have fever
spikes and became hemodynamically stable. It was planned to discharge him on levofloxacin 750 mg per oral daily for 7 days. He needs follow-up with his PCP.
Acute Kidney Injury and Hypovolemic Hyponatremia: Patient's hydrochlorothiazide was held due to hyponatremia and acute kidney injury. His losartan was held due his acute kidney injury and low blood pressure. The patient's hyponatremia resolved
following given IV fluids. His creatinine levels decreased from 2.9-1.4(baseline 1.2) with his treatment with IV fluids, He was recommended to see his PCP to decide restarting losartan.
#Type II DM: Patient's hemoglobin A1c level was found 7.8. His blood sugar level monitored and managed with insulin during the hospitalization. At discharge, he was prescribed metformin 500 mg BID and recommended to see his PCP for further
management of his diabetes.
#Other medical problems: These problems were treated as able to.
Important imaging findings :
Abd/Pelvis CT 07/16/24
FINDINGS:
CHEST:The included lung bases contain some subsegmental atelectasis and/or scarring.
ABDOMEN: Evaluation of the organs of the abdomen are markedly limited without intravenous contrast. The gallbladder is markedly ill-defined with possible wall thickening and surrounding pericholecystic stranding, and cannot exclude at least one tiny
stone within, image 43 series 201. Some stranding of the right anterior pararenal spaces noted. There are no unenhanced CT findings to suggest biliary tract dilatation. There is no gross focal intrinsic abnormality of the unopacified liver, spleen,
pancreas or adrenal glands. There is moderate bilateral perinephric stranding. There are no findings to suggest urinary tract calculus or dilatation bilaterally. The abdominal aorta is normal in caliber with calcific atherosclerotic changes. There
is no retroperitoneal lymphadenopathy. Evaluation of the intestinal tract is markedly limited without oral or intravenous contrast, without intestinal obstruction or free air.
PELVIS:The prostate gland is mildly enlarged with extrinsic impression upon the urinary bladder base. Urinary bladder proper is unopacified and incompletely distended, markedly limited in evaluation. There is no true pelvis free fluid or significant
lymphadenopathy. Large volume stool is seen in the rectum without rectal distention.
SKELETON:Degenerative changes are seen within the included lower thoracic and lumbar spine.
IMPRESSION:
Findings compatible with prominent gallbladder/pericholecystic stranding and possible wall thickening. Cannot exclude at least one tiny gallbladder stone. Findings could represent acute cholecystitis. Abdominal ultrasound could be obtained for more
complete evaluation.
No findings to suggest obstructive uropathy bilaterally. Moderate bilateral perinephric stranding, indeterminate.
Abd US 07/16/24:
FINDINGS: Evaluation overall limited as a result of patient body habitus and overlying bowel gas. The liver is normal in size, measuring 16.2 cm with a smooth capsular contour and minimally heterogeneous coarsened echotexture. Normal directional
blood flow is seen in the hepatic and portal veins. There is no focal hepatic lesion or intrahepatic biliary dilation. The gallbladder contains sludge and likely tiny stones with wall thickening at 0.54 cm and some additional ringdown shadows
suggesting adenomyomatosis. No sonographic Nunn's sign was elicited with examination. The common duct is normal, measuring 0.5 cm. The pancreas, abdominal aorta and IVC are significantly obscured, most likely by overlying bowel gas. The spleen is
normal in size and shows no focal abnormality. No signs of hydronephrosis, mass or calculi are seen in either kidney. The right kidney measured 10.1 cm in greatest length; the left kidney measured 10.5 cm in greatest length. No free fluid is seen
in the abdomen. No evidence of abdominal aortic aneurysm. The inferior vena cava is unremarkable.
IMPRESSION: Evaluation overall limited as a result of body habitus and overlying bowel gas. Please see above comments.
Gallbladder containing sludge and likely tiny stones with wall thickening. Negative sonographic Nunn's sign. No findings to suggest biliary tract dilatation. If there is a clinical concern for acute cholecystitis, suggest Nuclear Hepatobiliary
Scan.
No findings to suggest renal collecting system dilatation bilaterally.
Abd X Ray 07/19/24
IMPRESSION: Linear densities within the lower lungs, which is likely linear atelectasis.
Mild to moderate gaseous distention of the colon mainly involving the right colon and transverse colon, most likely a mild focal ileus.
No evidence of free intraperitoneal air.
Procedure findings :
Procedure(s):
Laparoscopic Cholecystectomy with Cholangiogram
Drainage of an intra-abdominal abscess
Surgeon(s):
Dr. Armenta
Project Safety Manager(s):
JENNIFER Goodman
Anesthesia: General
Estimated Blood Loss: 11 cc
Urine Output: None
Drains/Lines/Implants: 19 Macanese round Martell drain
Specimens:
1. Gallbladder and contents
HPI/Surgical Indications:
This is an 89-year-old male who presents with 7 days of abdominal pain. Exam, labs and imaging are consistent with acute cholecystitis. Risks/Benefits/Alternatives were discussed at length, and the patient agreed to proceed with surgery.
Operative Findings: Veress entry, initial 5 mm Optiview entry to medial to give us a good view so an additional 5 mm right upper quadrant port was used to better triangulate the gallbladder. The gallbladder itself was gangrenous and perforated.
There was free pus in the right upper quadrant noted on entry. This was sent for culture. We performed a top-down cholecystectomy without violation of the capsule. The cystic artery was identified and clipped. The cystic duct was ligated first
proximally with a 0 PDS Endoloop and a cholangiogram was performed which showed no distal filling defects and brisk flow of contrast into the duodenum as well as normal biliary anatomy. A second Endoloop was then used to divide the duct distally,
the stump was reinforced with two 5 mm clips. A 19 Macanese right upper quadrant drain was placed due to the gross purulent spillage/abscess.
Procedure Description:
The patient was brought to the Operating Room and placed in the supine position with one arm tucked. Following uneventful induction of general endotracheal anesthesia, an orogastric tube was placed. The abdomen was prepped and draped in the usual
sterile fashion. A timeout was performed confirming the procedure, consent, and that IV antibiotics were infused and sequential compression devices were confirmed to be on. The abdomen was entered using a left subcostal Veress technique which
required a single pass followed by a 5 mm right upper quadrant Optiview trocar. Pneumoperitoneum to 15 mmHg pressure was obtained without difficulty and we confirmed that no injury had occurred during our entry. The patient was positioned in
reverse Trendelenberg and rotated with the right side up slightly. Two 5 mm trocars were then placed along the right subcostal margin, followed by a 12 mm port in the epigastrium. Our initial 5 mm port appeared to be to superior medial to be
functional so an additional 5 mm port was placed in the right upper quadrant to better triangulate towards the gallbladder. There was pus noted immediately in the right upper quadrant concerning for perforated cholecystitis. After peeling back
some the pericolonc fat the anterior surface of the gallbladder was exposed and noted to be necrotic at multiple points. Palpation of the gallbladder because pus to ooze from the posterior aspect, nevertheless the gallbladder was emptied using a
decompressing needle through the fundus of the gallbladder with evacuation of hydrops before A locking grasping forceps was placed on the fundus of the gallbladder where it was then retracted cephalad and to the right. Using appropriate grasping
instruments, the peritoneum overlying the triangle of Calot was incised and extended superiorly on both the anterior and posterior gallbladder howell. The infundibulum was dissected off the cystic plate. A 4 x 4 Ray-Sergey was placed at the base of
her field to help mop and trap any debris. The cystic artery was medialized, dissected and controlled with 2 proximal clips and 1 distal. There was still however some scar tissue in this area so we elected to do a top-down cholecystectomy. Using
a laparoscopic bipolar energy device the gallbladder was gently peeled off of the liver. There was significant amount of pus in this fat plane which was all suctioned up. We eventually narrowed down towards the cystic duct/gallbladder junction and
this was controlled proximally with a 0 PDS Endoloop. A ductotomy was made and a cholangiocatheter on an Henry clamp was inserted into the cystic duct. A C-arm was draped and brought into the field. An intra-operative cholangiogram was performed and
was noted to have:
No filling defects in the biliary tree
No significant biliary dilation
Brisk flow of contrast into the duodenum
Normal biliary anatomy
The catheter was then removed and the cystic duct was controlled with a second 0 PDS Endoloop distally. The stump was divided and then reinforced with two 5 mm titanium clips. There was a significant amount of spillage of pus but no overt stones
were dropped. The gallbladder bed was inspected and excellent hemostasis was obtained. The gallbladder was extracted through the 12 mm trocar site using an endocatch bag. The Ray-Sergey was removed. The abdomen was again irrigated and excellent
hemostasis was assured. All remaining trocars were then removed and the pneumoperitoneum was evacuated. A 19 Macanese round Martell drain was introduced through the right lower quadrant port and passed across our field. This was secured to the skin
with a 3-0 nylon suture. The 12 mm trocar site was closed using 0 PDS suture. All trocar sites were closed at the skin level using 4-0 Monocryl followed by Dermabond. Overall, the patient tolerated the procedure well and was taken to the Recovery
Room postoperatively in stable condition.
I was the attending physician and performed the procedure with assistance from the CLINICAL TRAINER above. I was present for all portions of the case, excluding skin closure.
Lukas Armenta MD
07/17/24 Exams: RF Operative Cholangiogram
STUDY: RF Operative Cholangiogram
FINDINGS:
Contrast opacification of the cystic duct remnant, intrahepatic and extrahepatic bile ducts, and the duodenum. No persistent filling defect to suggest choledocholithiasis.
Cumulative dose: 5.71 mGy.
Fluoroscopy time: 20 seconds.
IMPRESSION:
Fluoroscopic guidance for an operative cholangiogram. Please see the procedural report for further details.
Discharge Plan
-
Patient Disposition: Home with Home Care
Discharge Diagnosis/Procedures: Gangrenous cholecystitis, Type II DM, sepsis
Condition: Fair
Diet: Diabetic, Carb Controlled
Activity: As tolerated
Driving Restrictions: No driving for 1 week
Bathing Restrictions: OK to Shower
Other Services: VN and PT
Activity Restrictions/Additional Instructions:
Instructions following Laparoscopic cholecystectomy
Please call [phone] if you have any questions or concerns after your surgery.
Wound Care:
Your incisions are covered with skin glue which will come off on it�s own in 5-10 days.
It is ok to shower the day after your surgery. Do not scrub the incisions, let soap and water wash over them and pat dry.
� Bruising around your incisions is normal.
� Using ice packs will help minimize this swelling.
� No swimming or soaking incisions for 1 week.
� Your stitches will dissolve and do not need to be removed.
Urinary retention:
If you are unable to urinate 6-8 hours after your surgery, please call [phone] to discuss further management.
Activity:
No heavy lifting more than 15 pounds for the next 3 weeks, then you may gradually lift heavier objects as tolerated by discomfort. Otherwise activity as tolerated by your comfort level.
Pain Management:
Use Tylenol, ibuprofen and ice packs to treat your pain.
� You may take 650 milligrams of Tylenol (Max 3 grams per day) every 6 hours, and 600 mg of ibuprofen also every 6 hours. (you can alternate them every 3 hours)
� You may use an ice pack to your incision as needed.
� If you still have pain not controlled by these measures, take your prescription pain medication as prescribed.
Medications:
You may resume your home medications.
Bowel Medications:
Prescription pain medication can make you constipated. If you take this medication, also take colace 100 mg twice daily (this is over the counter). If this is not sufficient, you may take Miralax (polyethylene glycol) to help move your bowels.
Diet:
After your procedure, there are no dietary restrictions. You may notice loose stools for up to 4 weeks after surgery with fatty meals, if this is the case you may have to adjust your diet as needed.
Driving restrictions:
No driving if you are taking prescription pain medication or if you think your normal reaction time and attentiveness has been slowed by your surgery.
Things to Look out for:
Worsening Abdominal pain, redness or drainage from incision
Call Doctor for:
Please call if you notice worsening redness or drainage from incision(s) lasting longer than 5 days after your surgery, any foul-smelling drainage from the incision, pain not controlled by pain medications, persistent nausea and vomiting, or for any
fevers greater than 101.3 F. The number for questions/concerns is [phone]
Follow-up:
Follow-up appointment will be scheduled with your surgeon in 3-4 weeks. Please call prior to your appointment if you have any questions or concerns. [phone]
Referrals:
Maribel Jacinto MD [Family Provider] -
Lukas Armenta MD [Active] - in two to four weeks
Prescriptions:
New
metformin 500 mg Tablet
500 mg PO BID@0800,1700 Qty: 60 2RF
levofloxacin 750 mg tablet
750 mg PO DAILY Qty: 7 0RF
Continued
aspirin 81 MG tablet,chewable
81 mg PO HS
amlodipine 5 mg Tablet
5 mg PO DAILY
docusate sodium [Stool Softener] 100 mg Capsule
100 mg PO HS
Held
losartan 100 MG tablet
100 mg PO DAILY
Hold Instructions: Resume on 07/27/24. Resume after discussion with PCP
Discontinued
hydrochlorothiazide 25 MG tablet
25 mg PO DAILY
Discharge Orders:
Discharge Patient (As Directed); Ordered 07/21/24
Ordered By: Rasheed Glynn
Discharge Date and Time
Discharge Date/Time: 07/21/24 15:19
Print Language: PASHTO
== END 2024-07-21 15:19 | disposition home health service (06) | DRG 853 ==
LOC: 4 WEST ACU 22:24
PROVIDERS: Nurse Practitioner; Physician Assistant Medical; Radiology Diagnostic Radiology; Registered Nurse; Student in an Organized Health Care Education/Training Program; Surgery; ADMITTING PHYSICIAN Internal Medicine; ATTENDING PHYSICIAN Hospitalist; CONSULT PHYSICIAN Surgery; EMERGENCY PHYSICIAN Student in an Organized Health Care Education/Training Program; FAMILY PHYSICIAN Family Medicine
PROC: 0FT44ZZ Resection of Gallbladder, Percutaneous Endoscopic Approach (ICD-10-PCS; 2024-07-17)
PROC: BF131ZZ Fluoroscopy of Gallbladder and Bile Ducts using Low Osmolar Contrast (ICD-10-PCS; 2024-07-17)
PROC: 0W9G40Z Drainage of Peritoneal Cavity with Drainage Device, Percutaneous Endoscopic Approach (ICD-10-PCS; 2024-07-17)
DX: A41.51 Sepsis due to Escherichia coli [E. coli] (principal); K65.1 Peritoneal abscess; K80.00 Calculus of gallbladder with acute cholecystitis without obstruction; E87.1 Hypo-osmolality and hyponatremia; N17.9 Acute kidney failure, unspecified; K82.A2 Perforation of gallbladder in cholecystitis; J98.11 Atelectasis; K56.7 Ileus, unspecified; K21.9 Gastro-esophageal reflux disease without esophagitis; N18.9 Chronic kidney disease, unspecified; K82.A1 Gangrene of gallbladder in cholecystitis; E66.01 Morbid (severe) obesity due to excess calories; E87.8 Other disorders of electrolyte and fluid balance, not elsewhere classified; I10 Essential (primary) hypertension; E86.1 Hypovolemia; I95.89 Other hypotension; E78.00 Pure hypercholesterolemia, unspecified; R65.20 Severe sepsis without septic shock; E87.6 Hypokalemia; E11.65 Type 2 diabetes mellitus with hyperglycemia; Z86.0100 Personal history of colon polyps, unspecified; Z87.19 Personal history of other diseases of the digestive system; Z87.891 Personal history of nicotine dependence; Z79.82 Long term (current) use of aspirin; Z68.38 Body mass index [BMI] 38.0-38.9, adult
CPT/HCPCS: 88304; 74022; 74176; 74300; 76000; 76700; 80048; 80053; 80076; 81003; 81015; 82962; 83036; 83605; 83690; 83930; 83935; 84300; 84484; 85025; 85027; 87040; 87070; 87075; 87077; 87149; 87186; 87205; 93005; 96374; 96375; 97116; 97162; 97166; 99285; A4300; C1776